=== PATIENT | male | born 1950 | race Caucasian/White ===

== ENCOUNTER → 2017-02-04 | Outpatient (CLI) | payer MEDICARE ==
[2016-04-02 13:40] VITALS: BP 135/76
[~2017-02-04] MED LIST: OMEP20CA9 PO
--- NOTE | 2017-02-04 10:01 | RAD ---
Examination: CT chest without contrast History: History of right upper lung infiltrate. Comparison: 04/02/2016 Technique: Axial CT images of chest were performed without contrast. Coronal and sagittal reformats were performed PQRS Compliance Statement: One or more of the following individualized dose reduction techniques were utilized for this examination: 1. Automated exposure control 2. Adjustment of the mA and/or kV according to patient size 3. Use of iterative reconstruction technique Findings: The visualized thyroid gland grossly appears unremarkable. The central airways are patent. The ascending aorta measures 4.4 cm in transverse dimension. Coronary artery calcifications identified. No evidence of pericardial effusion. Calcified mediastinal ,hilar lymph nodes are again identified. No radiologically significant mediastinal lymphadenopathy identified. The previously visualized left upper lobe pleural thickening has completely resolved. The apical scarring changes in the right lung is grossly similar to prior exam. There is minimal groundglass airspace opacity identified in the right upper lobe interstitium which appears new compared to prior exam. Emphysematous changes identified in the bilateral lungs. Calcified pleural plaque again identified in the left basal pleura. No evidence of pleural effusion or pneumothorax. The visualized noncontrasted liver, spleen, adrenals grossly appears unremarkable. The gallbladder is mildly distended. Moderate degenerative changes identified in the visualized thoracic spine. Nonspecific right axillary lymph nodes similar to prior exam. Impression: 1. Complete resolution of the left upper lobe focal pleural thickening. 2. Faint new groundglass interstitial opacity identified in the right upper lobe of the lung. Nonspecific , follow-up examination in 6 months is recommended to document stability or resolution. 3. Emphysematous changes identified in the lungs. 4. Mild aneurysmal change of the ascending thoracic aorta now measuring 4.4 cm in transverse dimension. 5. Coronary artery calcifications.
== END | disposition home or self-care (01) ==
LOC: CT 09:23
PROVIDERS: ATTEND Internal Medicine Pulmonary Disease
DX: I25.10 Atherosclerotic heart disease of native coronary artery without angina pectoris (principal); J43.8 Other emphysema; I72.9 Aneurysm of unspecified site; R91.8 Other nonspecific abnormal finding of lung field
CPT/HCPCS: 71250

== ENCOUNTER → 2020-02-03 | Outpatient (CLI) | payer MEDICARE ==
[2016-04-02 13:40] VITALS: BP 135/76
[~2020-02-03] MED LIST changes: +OMEP20CA16 PO; -OMEP20CA9 PO
--- NOTE | 2020-02-03 14:42 | RAD ---
Examination: CT chest without contrast HISTORY: COPD COMPARISON: 02/04/2017 Technique: Axial CT images of the chest were performed without contrast. Coronal and sagittal reformats are performed. Exposure: One or more of the following individualized dose reduction techniques were utilized for this examination: 1. Automated exposure control 2. Adjustment of the mA and/or kV according to patient size 3. Use of iterative reconstruction technique FINDINGS: The visualized thyroid gland grossly appears unremarkable central airways are patent. The ascending aorta is dilated measuring 4.6 cm in transverse dimension. No evidence for significant mediastinal lymphadenopathy. Severe bilateral lung emphysematous changes. There is a 1.5 cm spiculated nodule identified in the right lower lobe of the lung. Calcified pleural plaque left lung base. The visualized noncontrasted liver, adrenals grossly appears unremarkable. There is a subcentimeter right axillary lymph node identified similar to prior exam. Moderate degenerative changes thoracic spine. IMPRESSION: 1. A 1.5 cm spiculated nodule right lower lobe of the lung,, suspicious for neoplasm. Recommend PET/CT scan for further evaluation. 2. Severe bilateral lung emphysematous changes. 3. Aneurysmal change ascending aorta. Electronically signed by: Juan Jose España MD (02/03/2020 2:39 PM) [id number]
== END | disposition home or self-care (01) ==
LOC: CT 11:55
PROVIDERS: ATTEND Internal Medicine Pulmonary Disease
DX: J43.9 Emphysema, unspecified (principal); J94.8 Other specified pleural conditions; M47.814 Spondylosis without myelopathy or radiculopathy, thoracic region; I71.4 Abdominal aortic aneurysm, without rupture
CPT/HCPCS: 71250

== ENCOUNTER 2020-02-20 06:52 | Outpatient (CLI) | payer MEDICARE ==
[~2020-02-20] VITALS: Ht 171.4 cm; Wt 79.4 kg
[2020-02-20] VITALS (12 sets, daily range): BP systolic 138–178; BP diastolic 80–100
[~2020-02-20 06:52] MED LIST changes: -ALBU2.5V14 NEB; -ALBU2.5V8 IH; -ASCO500C9 PO; -ASPI-630 PO; -BUDE10.2 IH; -CALC-498 PO; -CRESTOR40 MG PO; -CYCL10TA2 PO; -FISH12002 PO; -FLUT9.9S NS; -GABA600T7 PO; -IPRA0.2S5 IH; -METO-239 PO; -MULT-658 PO; -OMEG-117 PO; -OXYC1TAB15 PO; -VITA0.4T4 PO
[2020-02-20] MEDS ORDERED: OMEG-117 PO (07:35)
[2020-02-20] MEDS ORDERED: FISH12002 PO (07:35)
[2020-02-20] MEDS ORDERED: ASPI-630 PO (07:35)
[2020-02-20] MEDS ORDERED: ALBU2.5V14 NEB (07:35)
[2020-02-20] MEDS ORDERED: CRESTOR40 MG PO (07:35)
[2020-02-20] MEDS ORDERED: ASCO500C9 PO (07:35)
[2020-02-20] MEDS ORDERED: FLUT9.9S NS (07:35)
[2020-02-20] MEDS ORDERED: OXYC1TAB15 PO (07:35)
[2020-02-20] MEDS ORDERED: CALC-498 PO (07:35)
[2020-02-20] MEDS ORDERED: IPRA0.2S5 IH (07:35)
[2020-02-20] MEDS ORDERED: ALBU2.5V8 IH (07:35)
[2020-02-20] MEDS ORDERED: CYCL10TA2 PO (07:35)
[2020-02-20] MEDS ORDERED: BUDE10.2 IH (07:35)
[2020-02-20] MEDS ORDERED: VITA0.4T4 PO (07:35)
[2020-02-20] MEDS ORDERED: GABA600T7 PO (07:35)
[2020-02-20] MEDS ORDERED: MULT-658 PO (07:35)
[2020-02-20] MEDS ORDERED: METO-239 PO (07:35)
[2020-02-20 07:42] LABS: BASO % 1 % (0-3); EOS # 0.1 x10^3/uL (0.0-0.7); EOS % 2 % (0-3); HEMATOCRIT 42.5 % (39.0-53.0); HEMOGLOBIN 14.6 g/dL (13.0-17.5); LYMPH # 1.1 x10^3/uL (1.0-4.8); LYMPH % 14 % (24-48); MEAN CORPUSCULAR HEMOGLOBIN 32 pg (25-35); MEAN CORPUSCULAR HGB CONC 34 g/dL (31-37); MEAN CORPUSCULAR VOLUME 94 fL (79-100); MONO # 0.6 x10^3/uL (0.0-1.1); MONO % 8 % (0-9); NEUT # 5.9 x10^3/uL (1.8-7.7); NEUT % 76 % (31-73); PLATELET COUNT 180 x10^3/uL (140-400); RED BLOOD COUNT 4.51 x10^6/uL (4.30-5.70); RED CELL DISTRIBUTION WIDTH 12.4 % (11.5-14.5); WHITE BLOOD COUNT 7.8 x10^3/uL (4.0-11.0)
[2020-02-20] MEDS ORDERED: LIDOCAINE WITH 8.4% SOD BICARB 3 ML DISP.SYRIN. ONE (08:18)
[2020-02-20] MEDS ORDERED: MIDAZOLAM HCL/PF 5 MG/5 ML VIAL. ONE (08:37)
[2020-02-20] MEDS ORDERED: fentaNYL PF VIAL 250 MCG/5 ML VIAL ONE (08:37)
[2020-02-20] MEDS ORDERED: LIDOCAINE WITH 8.4% SOD BICARB 3 ML DISP.SYRIN. IJ ONE (09:00)
[2020-02-20] MEDS ORDERED: fentaNYL PF VIAL 250 MCG/5 ML VIAL IV ONE (09:00)
[2020-02-20] MEDS ORDERED: MIDAZOLAM HCL/PF 5 MG/5 ML VIAL. IV ONE (09:00)
--- NOTE | 2020-02-20 09:14 | NUR ---
Patient came in outpatient to have lung biopsy. During procedure patient became restless and would not answer questions or follow commands. Vitals stable, no respiratory distress. Per Dr Macias procedure stopped, no biopsy obtained. Patient will need to reschedule with anesthesia with no sedation. Patient taken to OBS for recovery. After patient transferred to bed, patient began talking, asking questions, following commands but physically tensing up.
--- NOTE | 2020-02-20 10:44 | NUR ---
Discharge Note: JO ANN MENDES Discharge instructions and discharge home medications reviewed with Patient and a copy given. All questions have been answered and understanding verbalized. The following instructions and handouts were given: adult moderate sedation, lung biopsy Discontinued lines and drains: Peripheral IV intact. Patient discharged to Home or Self Care withSpousevia Wheelchair
--- NOTE | 2020-02-28 08:28 | RAD ---
Attempted biopsy, right lower lobe lung nodule Discussion: Attempted biopsy of the right lower lobe lung nodules performed. The procedure was explained in its entirety to the patient or the patients designated business services sales representative by a member of the treatment team, including a discussion of the risks, benefits and commonly accepted alternatives to the procedure, as well as the expected consequences of no therapy whatsoever. Discussion of the risks included, but was not limited to, those that are most frequent and those that are rare but possibly severe or life-threatening, as well as the possibility of unforeseen complications. All elements of maximal sterile barrier technique including the use of a cap, mask, sterile gown, sterile gloves, large sterile sheet, appropriate hand hygiene, and 2% chlorhexidine for cutaneous antisepsis (or acceptable alternative antiseptic per current guidelines) were followed for this procedure. A timeout procedure was performed The patient was placed in the prone position. Conscious sedation was administered. 1% lidocaine was administered for local anesthesia. CT imaging demonstrated a nodule in the posterior right lower lobe. 1% lidocaine was administered. Guiding needles advanced into the subcutaneous tissues. However this point the patient became agitated, and would not respond appropriately to verbal commands. This is felt to be in reaction to the sedation administered. The procedure was therefore terminated. Patient remained hemodynamically completely stable. Over the next several minutes the patient returned to baseline. No immediate complications were identified. The procedure will be rescheduled with anesthesia.
== END 2020-02-20 10:50 | disposition home or self-care (01) ==
LOC: INTRAD 06:52
PROVIDERS: ATTEND Internal Medicine Pulmonary Disease
DX: Z53.8 Procedure and treatment not carried out for other reasons (principal); R91.1 Solitary pulmonary nodule; Z87.39 Personal history of other diseases of the musculoskeletal system and connective tissue; Z79.899 Other long term (current) drug therapy; Z79.01 Long term (current) use of anticoagulants
CPT/HCPCS: 32405; 36415; 77012; 85025; 85610; 85730; 99152; J2250; J3010; J3490

== ENCOUNTER → 2020-02-20 | Outpatient (CLI) | payer MEDICARE ==
[~2020-02-20] MED LIST changes: +ALBU2.5V14 NEB; +ALBU2.5V8 IH; +ASCO500C9 PO; +ASPI-630 PO; +BUDE10.2 IH; +CALC-498 PO; +CRESTOR40 MG PO; +CYCL10TA2 PO; +FISH12002 PO; +FLUT9.9S NS; +GABA600T7 PO; +IPRA0.2S5 IH; +METO-239 PO; +MULT-658 PO; +OMEG-117 PO; +OXYC1TAB15 PO; +VITA0.4T4 PO
[2020-02-20 10:30] VITALS: BP 153/90
== END ==
LOC: LAB 11:00
PROVIDERS: ATTEND Surgery
DX: Z01.812 Encounter for preprocedural laboratory examination (principal); R91.8 Other nonspecific abnormal finding of lung field; Z20.828 Contact with and (suspected) exposure to other viral communicable diseases
CPT/HCPCS: U0003-CS

== ENCOUNTER → 2020-02-22 | Outpatient (CLI) | payer MEDICARE ==
[~2020-02-22] VITALS: Ht 171.4 cm; Wt 79.4 kg
[~2020-02-22] MED LIST changes: +ALBU2.5V14 NEB; +ALBU2.5V8 IH; +ASCO500C9 PO; +ASPI-630 PO; +BUDE10.2 IH; +CALC-498 PO; +CRESTOR40 MG PO; +CYCL10TA2 PO; +FISH12002 PO; +FLUT9.9S NS; +GABA600T7 PO; +GLYCOPYRROLATE 1 MG/5 ML VIAL. ONE; +IPRA0.2S5 IH; +IV RINGERS SOLUTION,LACTATED 1,000 ML BAG. ONE; +KETAMINE HCL IN NACL, ISO-OSM 50 MG/5 ML SYRINGE ONE; +LIDOCAINE WITH 8.4% SOD BICARB 3 ML DISP.SYRIN. IJ ONE; +LIDOCAINE WITH 8.4% SOD BICARB 3 ML DISP.SYRIN. ONE; +METO-239 PO; +MULT-658 PO; +OMEG-117 PO; +OXYC1TAB15 PO; +PROPOFOL 10 MG/ML (20ML) VIAL. IV ONE; +PROPOFOL 50 ML IV ONE; +VITA0.4T4 PO; +fentaNYL PF VIAL 100 MCG/2 ML VIAL ONE
[2020-02-22 10:43] VITALS: BP 123/75
[2020-02-22 12:15] VITALS: BP 132/80
[2020-02-22 15:00] VITALS: BP 120/76
--- NOTE | 2020-02-24 16:04 | RAD ---
CT-guided biopsy, right lower lobe pulmonary nodule 02/23/2020 Indication: Right lower lobe nodule Discussion: The risks and benefits of the procedure, including but not limited to, bleeding and infection were discussed patient. Informed consent was obtained. The patient was brought to the CT scanner and placed in the prone position. A timeout procedure was performed. CT imaging was performed demonstrating a spiculated nodule right lower lobe. Right posterior chest was prepped and draped using sterile barrier technique. 1% lidocaine was administered for local anesthesia. Under intermittent CT guidance 17-gauge needles advanced into the aforementioned nodule. Core biopsy samples were obtained. Minimal pneumothorax and perilesional hemorrhage was seen following biopsy. Patient tolerated the procedure well. Patient was transferred to the recovery area in stable condition. Sedation was provided by the anesthesiology department Impression: CT-guided biopsy right lower lobe nodule PQRS Compliance Statement: One or more of the following individualized dose reduction techniques were utilized for this examination: 1. Automated exposure control 2. Adjustment of the mA and/or kV according to patient size 3. Use of iterative reconstruction technique
--- NOTE | 2020-02-24 17:07 | PATHOLOGY ---
[facility] Accession Number: [id number] . 01 Material submitted: . lung - RIGHT LUNG BIOPSY. Modifiers: right . 01 Clinical history: . RIGHT UPPER LOBE MASS . 02 Diagnosis: Lung "right upper lobe mass", needle biopsy: - SQUAMOUS CELL CARCINOMA, MODERATELY DIFFERENTIATED. (GIANFRANCO:janet; 02/24/2020) . . MBR 02/24/2020 1627 Local . 02 Comment: The case was seen in co-review with Dr. Claudia Smart. (GIANFRANCO:janet; 02/24/2020) . 02 Electronically signed: . Lisa Mace MD, Pathologist NPI- [id number] . 01 Gross description: . The specimen is received in formalin, labeled "Ousmane Dodge, right lung biopsy". Received are two needle cores of pale quick soft tissue ranging in length from 0.4 to 0.6 cm in length by 0.1 cm in diameter. The specimen is submitted entirely in cassette A1 and A2. ([facility]; 02/22/2020) QA/QA 02/22/2020 1755 Local . 02 Microscopic: . Immunohistochemical stain results (properly controlled): CK5/6 (block A1) - tumor cells positive. P63 (block A1) - tumor cells positive for nuclear staining. TTF-1 (block A1) - highlights pneumocytes, tumor cells negative. Napsin A (block A1) - highlights pneumocytes, tumor cells negative. (GIANFRANCO:janet; 02/24/2020) . 02 Pathologist provided ICD-10: C34.11 . 02 CPT . 878812, [id number], [id number] Specimen Comment: A courtesy copy of this report has been sent to [phone], [phone] Specimen Comment: [id number], Specimen Comment: Report sent to ,DR LEON / DR LEVIN Performed at: [address], [place] [id number] MD Harinder Glover MD Phone: [phone] Performed at: [facility] [address] [facility], [place] [id number] MD David Basurto MD Phone: [phone]
--- NOTE | 2020-03-30 15:15 | KCIC ---
AP portable chest radiograph 02/22/2020 Clinical History: Post lung biopsy earlier today. An AP erect portable digital radiograph of the chest was obtained. Comparison is made to patient's CT scan of the chest dated 02/03/2020. The cardiac silhouette is normal in size. The thoracic aorta is tortuous. Scattered calcification thoracic aorta is seen. Emphysematous changes are seen involving both lungs. No acute pulmonary infiltrate is seen. No pleural effusion or pneumothorax is noted. The osseous structures are unchanged. IMPRESSION: No pneumothorax is seen. Electronically signed by: Pedro Busby MD (02/22/2020 5:50 PM) [id number] [id number]
== END ==
LOC: INTRAD 09:57
PROVIDERS: ATTEND Internal Medicine Pulmonary Disease
DX: C34.11 Malignant neoplasm of upper lobe, right bronchus or lung (principal); J93.83 Other pneumothorax; J43.9 Emphysema, unspecified; Z87.891 Personal history of nicotine dependence; Z79.82 Long term (current) use of aspirin; Z79.899 Other long term (current) drug therapy
CPT/HCPCS: 32405; 71045; 77012; J2704; J3010; J3490; J7120

== ENCOUNTER 2020-02-23 15:53 | Emergency (ER) | payer MEDICARE ==
[~2020-02-23] VITALS: Ht 171.4 cm; Wt 79.5 kg
[~2020-02-23 15:53] MED LIST changes: -GLYCOPYRROLATE 1 MG/5 ML VIAL. ONE; -IV RINGERS SOLUTION,LACTATED 1,000 ML BAG. ONE; -KETAMINE HCL IN NACL, ISO-OSM 50 MG/5 ML SYRINGE ONE; -LIDOCAINE WITH 8.4% SOD BICARB 3 ML DISP.SYRIN. IJ ONE; -LIDOCAINE WITH 8.4% SOD BICARB 3 ML DISP.SYRIN. ONE; -PROPOFOL 10 MG/ML (20ML) VIAL. IV ONE; -PROPOFOL 50 ML IV ONE; -fentaNYL PF VIAL 100 MCG/2 ML VIAL ONE
--- NOTE | 2020-02-23 17:35 | PHYS DOC ---
Past Medical History Past Medical History: Asthma, Bronchitis, COPD (MIKE LAMBERT DO) Past Surgical History: Other Additional Past Surgical Histo: LT hand tendon repair, prostate surg, vocal cord biopsy, laminoscopy x2 (MIKE LAMBERT DO) Smoking Status: Former Smoker Alcohol Use: None (MIKE LAMBERT DO) General Adult EDM: Chief Complaint: coughing up blood HPI: HPI: Patient is a 69 year old male who presented to ER with coughing up blood and trouble breathing since last night.. Patient is a former smoker, he was found to have a right upper lobe mass, had lung biopsy done yesterday. Patient said he is on 2 L of oxygen at home. He was coughing up blood last night and then again today so he came here for evaluation. Patient denies any fever, no chest pain. (MIKE LAMBERT DO) Review of Systems: Review of Systems: Constitutional: Denies fever or chills. [] Eyes: Denies change in visual acuity. [] HENT: Denies nasal congestion or sore throat. [] Respiratory: Positive for cough and shortness of breath. [] Cardiovascular: Denies chest pain or edema. [] GI: Denies abdominal pain, nausea, vomiting, bloody stools or diarrhea. [] : Denies dysuria. [] Musculoskeletal: Denies back pain or joint pain. [] Integument: Denies rash. [] Neurologic: Denies headache, focal weakness or sensory changes. [] Endocrine: Denies polyuria or polydipsia. [] Lymphatic: Denies swollen glands. [] Psychiatric: Denies depression or anxiety. [] (MIKE LAMBERT DO) Heart Score: Risk Factors: Risk Factors: DM, Current or recent (<one month) smoker, HTN, HLP, family history of CAD, obesity. Risk Scores: Score 0 - 3: 2.5% MACE over next 6 weeks - Discharge Home Score 4 - 6: 20.3% MACE over next 6 weeks - Admit for Clinical Observation Score 7 - 10: 72.7% MACE over next 6 weeks - Early Invasive Strategies (MIKE LAMBERT DO) Current Medications: Current Medications Iohexol (Omnipaque 300 Mg/ml) 75 ml 1X ONCE IV Last administered on 02/23/20at 18:30; Start 10/15/20 at 18:30; Stop 02/23/20 at 18:31; Status DC Info (CONTRAST GIVEN -- Rx MONITORING) 1 each PRN DAILY PRN MC SEE COMMENTS; Start 02/23/20 at 18:30; Stop 02/25/20 at 18:29 Active Scripts Active Reported Vitamin C (Ascorbic Acid) 500 Mg Capsule 1,000 Mg PO DAILY [place] 3-6-9 1,200 mg Softgel (Fish Oil/Borage/Flax/Om3,6,9#1) 1,200 Mg Capsule 1 Cap PO BID 30 Days B-Complex Tablet (Vitamin B Complex/Folic Acid) 0.4 Mg Tablet 1 Tab PO DAILY 30 Days Calcium 600 + Vit D3 800 Tab (Calcium Carbonate/Vitamin D3) 1 Each Tablet 1 Tab PO DAILY 30 Days Centrum Silver Tablet (Multivits-Min/Fa/Lycopene/Lut) 1 Each Tablet 1 Each PO DAILY Symbicort 160-4.5 Mcg Inhaler (Budesonide/Formoterol Fumarate) 10.2 Gm Hfa.aer.ad 2 Puff IH BID Proair Hfa Inhaler (Albuterol Sulfate) 8.5 Gm Hfa.aer.ad 2 Puff IH PRN Q4-6HRS PRN 21 Days Flonase Allergy Relief (Fluticasone Propionate) 9.9 Ml [place].susp 2 Sprays NS DAILY Albuterol Sulfate Conc Neb Soln (Albuterol Sulfate) 2.5 Mg/0.5 Ml Vial.neb 1 Vial NEB Q6HRS Ipratropium [place] 0.2 Mg/1 Ml Solution 0.2 Mg IH PRN PRN Crestor (Rosuvastatin Calcium) 40 Mg Tablet 20 Mg PO HS Aspirin 81 Mg Tab.chew 1 Tab PO DAILY Percocet 5-325 Mg Tablet (Oxycodone/Acetaminophen) 1 Each Tablet 1 Tab PO PRN Q6HRS PRN Cyclobenzaprine Hcl 10 Mg Tablet 1 Tab PO TID Gabapentin 600 Mg Tablet 600 Mg PO TID Metoprolol Succinate ( Xl ) (Metoprolol Succinate) 25 Mg Tab.er.24h 1 Tab PO DAILY Omeprazole 20 Mg Capsule. 1 Cap PO BID (ZION GONZALEZ MD) Allergies: Allergies: Allergies Coded Allergies Type Severity Reaction Last Updated Verified No Known Drug Allergies 04/02/16 No (MIKE LAMBERT DO) Physical Exam: PE: Constitutional: Well developed, well nourished, no acute distress, non-toxic appearance. [] HENT: Normocephalic, atraumatic, bilateral external ears normal, oropharynx moist, no oral exudates, nose normal. [] Eyes: PERRLA, EOMI, conjunctiva normal, no discharge. [] Neck: Normal range of motion, no tenderness, supple, no stridor. [] Cardiovascular:Heart rate regular rhythm, no murmur [] Lungs & Thorax: Bilateral breath sounds with expiratory wheezing to auscultation, No respiratory distress. Abdomen: Bowel sounds normal, soft, no tenderness, no masses, no pulsatile masses. [] Skin: Warm, dry, no erythema, no rash. [] Back: No tenderness, no CVA tenderness. [] Extremities: No tenderness, no cyanosis, no clubbing, ROM intact, no edema. [] Neurologic: Alert and oriented X 3, normal motor function, normal sensory function, no focal deficits noted. [] Psychologic: Affect normal, judgement normal, mood normal. [] (MIKE LAMBERT DO) Current Patient Data: Vital Signs: Vital Signs Date Time Temp Pulse Resp B/P (MAP) Pulse Ox O2 Delivery O2 Flow Rate FiO2 02/23/20 16:30 98.1 84 22 117/66 (83) 98 Nasal Cannula 2.0 98.1 (MIKE LAMBERT DO) Labs: Laboratory Tests Test 02/23/20 17:45 White Blood Count 6.9 x10^3/uL Red Blood Count 4.38 x10^6/uL Hemoglobin 14.3 g/dL Hematocrit 40.9 % Mean Corpuscular Volume 93 fL Mean Corpuscular Hemoglobin 33 pg Mean Corpuscular Hemoglobin Concent 35 g/dL Red Cell Distribution Width 12.6 % Platelet Count 182 x10^3/uL Neutrophils (%) (Auto) 69 % Lymphocytes (%) (Auto) 19 % Monocytes (%) (Auto) 10 % Eosinophils (%) (Auto) 2 % Basophils (%) (Auto) 0 % Neutrophils # (Auto) 4.8 x10^3/uL Lymphocytes # (Auto) 1.3 x10^3/uL Monocytes # (Auto) 0.7 x10^3/uL Eosinophils # (Auto) 0.1 x10^3/uL Basophils # (Auto) 0.0 x10^3/uL Prothrombin Time 13.4 SEC Prothromb Time International Ratio 1.1 Activated Partial Thromboplast Time 26 SEC Sodium Level 142 mmol/L Potassium Level 3.7 mmol/L Chloride Level 105 mmol/L Carbon Dioxide Level 29 mmol/L Anion Gap 8 Blood Urea Nitrogen 22 mg/dL Creatinine 1.0 mg/dL Estimated GFR (Cockcroft-Gault) 73.9 BUN/Creatinine Ratio 22 Glucose Level 105 mg/dL Calcium Level 9.0 mg/dL Magnesium Level 2.2 mg/dL Total Bilirubin 0.5 mg/dL Aspartate Amino Transf (AST/SGOT) 14 U/L Alanine Aminotransferase (ALT/SGPT) 28 U/L Alkaline Phosphatase 74 U/L Total Protein 5.9 g/dL Albumin 3.5 g/dL Albumin/Globulin Ratio 1.5 Current Medications Medications (Trade) Dose Ordered Sig/Ina Route PRN Reason Start Time Stop Time Status Last Admin Dose Admin Iohexol (Omnipaque 300 Mg/ml) 75 ml 1X ONCE IV 02/23/20 18:30 02/23/20 18:31 DC 02/23/20 18:30 Info (CONTRAST GIVEN -- Rx MONITORING) 1 each PRN DAILY PRN MC SEE COMMENTS 02/23/20 18:30 02/25/20 18:29 Vital Signs: Vital Signs Date Time Temp Pulse Resp B/P (MAP) Pulse Ox O2 Delivery O2 Flow Rate FiO2 02/23/20 18:00 80 16 122/62 (82) 100 Nasal Cannula 2.0 02/23/20 17:30 82 20 115/67 (83) 99 Nasal Cannula 2.0 02/23/20 17:00 82 18 105/56 (72) 99 Nasal Cannula 2.0 02/23/20 16:30 98.1 84 22 117/66 (83) 98 Nasal Cannula 2.0 98.1 02/23/20 16:30 88 19 117/66 (83) 96 Nasal Cannula 2.0 (ZION GONZALEZ MD) EKG: EKG: [] (MIKE LAMBERT DO) Radiology/Procedures: Radiology/Procedures: [][facility] [address] [place], [place] [id number] IMAGING REPORT Signed PATIENT: JO ANN MENDES RACCOUNT: [id number] : 1950 LOCATION: ER AGE: 69 SEX: M EXAM STATUS: REG ER ORD. PHYSICIAN: MIKE LAMBERT DO REASON: SOA, COUGHING UP BLOOD, HAD LUNG BIOPSY YESTERDAY PROCEDURE: CHEST AP ONLY CHEST AP ONLY History: Reason: SOA, COUGHING UP BLOOD, HAD LUNG BIOPSY YESTERDAY / Spl. Instructions: / History: Comparison: February 22, 2020 Findings: Tiny right apical pneumothorax, unchanged compared to postbiopsy CT. Patchy right basilar opacity. No pleural effusion. Normal heart size. Bilateral glenohumeral DJD. Impression: 1. Tiny right apical pneumothorax, unchanged compared to postbiopsy CT. 2. Patchy right basilar opacity, likely related to postbiopsy hemorrhage. Electronically signed by: Reno Kilgore DO (02/23/2020 5:30 PM) [facility] DICTATED and SIGNED BY: RENO KILGORE DO DATE: 02/23/201729 (MIKE LAMBERT DO) Radiology/Procedures: [facility] [address] [place] [address] IMAGING REPORT Signed PATIENT: JO ANN MENDESUNT: [id number] : 1950 LOCATION: ER AGE: 69 SEX: M EXAM STATUS: REG ER ORD. PHYSICIAN: MIKE LAMBERT DO REASON: cough up blood, soa, had lung biopsy done yesterday PROCEDURE: CT CHEST W/CONTRAST CT CHEST W/CONTRAST History: Hemoptysis. Shortness of breath. Recent lung biopsy. Technique: CT of the chest was performed with intravenous contrast. Coronal and sagittal reconstructions were performed. Exposure: One or more of the following individualized dose reduction techniques were utilized for this examination: 1. Automated exposure control 2. Adjustment of the mA and/or kV according to patient size 3. Use of iterative reconstruction technique. Comparison: CT lung biopsy February 22, 2020. CT February 03, 2020 Findings: Chest: Tiny right anterior pneumothorax, decreased compared to postbiopsy CT. Right lower lobe spiculated nodule measures 1.3 x 1.3 cm. There is adjacent groundglass opacities, likely postbiopsy hemorrhage and decreased compared to postbiopsy CT. Severe pulmonary emphysema. Calcified right hilar lymph nodes and calcified pulmonary nodules, likely prior granulomatous disease. No pathologic lymphadenopathy. No pleural effusion. Unchanged dilatation of the ascending aorta measures 4.3 cm. Right inferior thyroid nodule measures 1.2 x 1.3 cm, unchanged. Upper abdomen: Right mid renal cyst partially imaged, unchanged. Bones: Multilevel thoracic spondylosis. Lower cervical spondylosis with grade 1 anterolisthesis C7 on T1. Impression: 1. Tiny right pneumothorax, decreased compared to post biopsy CT. 2. Spiculated right lower lobe pulmonary nodule with adjacent ground glass opacities, decreased compared to postbiopsy CT. Findings likely related to decreasing postbiopsy hemorrhage. Recommend follow-up of biopsy results. 3. Severe pulmonary emphysema. 4. Right inferior thyroid nodule, unchanged. Electronically signed by: Reno Kilgore DO (02/23/2020 7:05 PM) [facility] DICTATED and SIGNED BY: RENO KILGORE DO DATE: 02/23/201904 (ZION GONZALEZ MD) Course & Med Decision Making: Course & Med Decision Making Pertinent Labs and Imaging studies reviewed. (See chart for details) Patient is a 69-year-old male who had a lung biopsy done yesterday, presented with hemoptysis, had tiny apical pneumothorax, will obtain CT scan of head chest to evaluate for vascular injury and pneumothorax, checked out to Dr. Gonzalez at shift change. (MIKE LAMBERT DO) Course & Med Decision Making 69-year-old male who had a lung biopsy yesterday and presents with hemoptysis. Patient was initially seen by Dr. Yoon and signed out to me. On my reassessment patient is alert and oriented no respiratory distress and has not had any hemoptysis in the last hour plus. CT is stable/improved from yesterday. Labs were unremarkable. Patient satting 100% on room air and in no respiratory distress. (ZION GONZALEZ MD) Dragon Disclaimer: Dragon Disclaimer: This electronic medical record was generated, in whole or in part, using a voice recognition dictation system. (MIKE LAMBERT DO) Departure Departure Impression: Primary Impression: Cough with hemoptysis Disposition: 01 DC HOME SELF CARE/HOMELESS Condition: STABLE Referrals: JELENA LEVIN (PCP) KORIN LEON MD 2-3 days Patient Instructions: Hemoptysis Additional Instructions: EMERGENCY DEPARTMENT GENERAL DISCHARGE INSTRUCTIONS THANK YOU for coming to [facility] Emergency Department (ED) today and trusting us with your care. We trust that you had a positive experience in our Emergency Department. If you wish to speak to the department Management you can contact the electronics department manager at . YOUR FOLLOW UP INSTRUCTIONS ARE FOLLOWS: Do you have a private doctor? If you do not have a private doctor, please ask for a resource list of physicians or clinics that may be able to assist you with follow up care. The Emergency Physician has interpreted your x-rays. The X-ray specialist will also review them. If there is a change in the findings you will be notified in 48 hours when at all possible. A lab test or lab culture may have been done, your results will be reviewed and you will be notified if you need a change in treatment. ADDITIONAL INSTRUCTIONS AND INFORMATION Your care today has been supervised by a physician who is specially trained in emergency care. Many problems require more than one evaluation for a complete diagnosis and treatment. We recommend that you schedule your follow up appointment as recommended to ensure complete treatment of your illness or injury. If you are unable to obtain follow up care and continue to have a problem, or if your condition worsens we recommend that you return to the ED. We are not able to safely determine your condition over the phone nor are we able to give sound medical advice over the phone. For these safety reasons, if you call for medical advice we will ask you to come to the ED for further evaluation If you have any questions regarding these discharge instructions please call the ED at . SAFETY INFORMATION In the interest of safety, wellness, and injury prevention; we encourage you to wear your seatbelt, if you smoke; quit smoking, and we encourage your family to use protective helmet for bicycling and other sporting events that present an increased risk for head injury. IF YOUR SYMPTOMS WORSEN OR NEW SYMPTOMS DEVELOP, OR YOU HAVE CONCERNS ABOUT YOUR CONDITION; OR IF YOUR CONDITION WORSENS WHILE YOU ARE WAITING FOR YOUR FOLLOW UP APPOINTMENT; EITHER CONTACT YOUR PRIMARY CARE DOCTOR, THE PHYSICIAN WHOSE NAME AND NUMBER YOU WERE GIVEN, OR RETURN TO THE ED IMMEDIATELY. MIKE LAMBERT DO Feb 23, 2020 17:35 ZION GONZALEZ MD Feb 23, 2020 19:18
[2020-02-23 17:52] LABS: BASO % 0 % (0-3); EOS # 0.1 x10^3/uL (0.0-0.7); EOS % 2 % (0-3); HEMATOCRIT 40.9 % (39.0-53.0); HEMOGLOBIN 14.3 g/dL (13.0-17.5); LYMPH # 1.3 x10^3/uL (1.0-4.8); LYMPH % 19 % (24-48); MEAN CORPUSCULAR HEMOGLOBIN 33 pg (25-35); MEAN CORPUSCULAR HGB CONC 35 g/dL (31-37); MEAN CORPUSCULAR VOLUME 93 fL (79-100); MONO # 0.7 x10^3/uL (0.0-1.1); MONO % 10 % (0-9); NEUT # 4.8 x10^3/uL (1.8-7.7); NEUT % 69 % (31-73); PLATELET COUNT 182 x10^3/uL (140-400); RED BLOOD COUNT 4.38 x10^6/uL (4.30-5.70); RED CELL DISTRIBUTION WIDTH 12.6 % (11.5-14.5); WHITE BLOOD COUNT 6.9 x10^3/uL (4.0-11.0)
[2020-02-23 17:59] LABS: GFR 73.9; POTASSIUM 3.7 mmol/L (3.5-5.1)
[2020-02-23 18:00] LABS: PROTHROMBIN TIME PATIENT 13.4 SEC (11.7-14.0)
[2020-02-23 18:05] LABS: ALBUMIN 3.5 g/dL (3.4-5.0); ALBUMIN/GLOBULIN RATIO 1.5 (1.0-1.7); MAGNESIUM 2.2 mg/dL (1.8-2.4); TOTAL BILIRUBIN 0.5 mg/dL (0.2-1.0); TOTAL PROTEIN 5.9 g/dL (6.4-8.2)
[2020-02-23] MEDS ORDERED: CONTRAST GIVEN. MC PRN (18:30)
[2020-02-23] MEDS ORDERED: IOHEXOL 300 MG/ML 100ML VIAL. IV ONE (18:30)
--- NOTE | 2020-02-23 19:07 | RAD ---
CT CHEST W/CONTRAST History: Hemoptysis. Shortness of breath. Recent lung biopsy. Technique: CT of the chest was performed with intravenous contrast. Coronal and sagittal reconstructions were performed. Exposure: One or more of the following individualized dose reduction techniques were utilized for this examination: 1. Automated exposure control 2. Adjustment of the mA and/or kV according to patient size 3. Use of iterative reconstruction technique. Comparison: CT lung biopsy February 22, 2020. CT February 03, 2020 Findings: Chest: Tiny right anterior pneumothorax, decreased compared to postbiopsy CT. Right lower lobe spiculated nodule measures 1.3 x 1.3 cm. There is adjacent groundglass opacities, likely postbiopsy hemorrhage and decreased compared to postbiopsy CT. Severe pulmonary emphysema. Calcified right hilar lymph nodes and calcified pulmonary nodules, likely prior granulomatous disease. No pathologic lymphadenopathy. No pleural effusion. Unchanged dilatation of the ascending aorta measures 4.3 cm. Right inferior thyroid nodule measures 1.2 x 1.3 cm, unchanged. Upper abdomen: Right mid renal cyst partially imaged, unchanged. Bones: Multilevel thoracic spondylosis. Lower cervical spondylosis with grade 1 anterolisthesis C7 on T1. Impression: 1. Tiny right pneumothorax, decreased compared to post biopsy CT. 2. Spiculated right lower lobe pulmonary nodule with adjacent ground glass opacities, decreased compared to postbiopsy CT. Findings likely related to decreasing postbiopsy hemorrhage. Recommend follow-up of biopsy results. 3. Severe pulmonary emphysema. 4. Right inferior thyroid nodule, unchanged. Electronically signed by: Reno Kilgore DO (02/23/2020 7:05 PM) [facility]
[2020-02-23 19:52] VITALS: BP 117/71
== END 2020-02-23 19:56 | disposition home or self-care (01) ==
LOC: ER 15:53
DX: R04.2 Hemoptysis (principal); J44.9 Chronic obstructive pulmonary disease, unspecified; Z87.891 Personal history of nicotine dependence
CPT/HCPCS: 36415; 71045; 71260; 80053; 83735; 85025; 85610; 85730; 88305; 88341; 88342; 99285; Q9967

== ENCOUNTER → 2020-03-02 | Outpatient (CLI) | payer MEDICARE ==
[2020-02-23 19:52] VITALS: BP 117/71
== END ==
LOC: LAB 12:43
PROVIDERS: ATTEND Internal Medicine Pulmonary Disease
DX: Z20.828 Contact with and (suspected) exposure to other viral communicable diseases (principal)
CPT/HCPCS: U0003-CS

== ENCOUNTER → 2020-03-05 | Day surgery (SDC) | payer MEDICARE ==
[~2020-03-05] MED LIST changes: +ALBUTEROL SULFATE 2.5 MG/3 ML NEBU. NEB PRN; +EPINEPHrine 1 MG/ML VIAL INJ PRN; +EPINEPHrine 1 MG/ML VIAL ONE; +HYDROmorphone 2 MG/ML VIAL IV PRN; +IV RINGERS,LACTATED 1000ML 1,000 ML IV SCH; +LIDOCAINE 1% Multi-Dose 20 ML VIAL. INJ PRN; +LIDOCAINE 1% Multi-Dose 20 ML VIAL. ONE; +LIDOCAINE 1% PF 2 ML VIAL. ID PRN; +LIDOCAINE 2% VISCOUS 100 ML BOTTLE. MM PRN; +LIDOCAINE 2% VISCOUS 100 ML BOTTLE. ONE; +LIDOCAINE 4% TOPICAL 50 ML SOLUTION. MM PRN; +LIDOCAINE 4% TOPICAL 50 ML SOLUTION. ONE; +MORPHINE SULFATE 2 MG/ML VIAL. IV PRN; +ONDANSETRON PF 4 MG/2 ML VIAL. IV PRN; +PROCHLORPERAZINE 10 MG/2 ML VIAL. IV PRN; +PROPOFOL 10 MG/ML (20ML) VIAL. IV ONE; +fentaNYL PF VIAL 100 MCG/2 ML VIAL IV PRN
[2020-03-05 13:09] VITALS: BP 113/58
--- NOTE | 2020-03-05 13:44 | OP ---
DATE OF SURGERY: 03/05/2020 ATTENDING PHYSICIAN: Korin Leon MD. PROCEDURE: Bronchoscopy, bronchoalveolar lavage of right lower lobe. INDICATIONS: The patient presented with hemoptysis, recent diagnosis of lung cancer status post fine needle aspiration, undergoing diagnostic bronchoscopy. Risks, benefits, and alternatives reviewed with the patient, he consented. DESCRIPTION OF PROCEDURE: A timeout was performed prior to sedation. Vital signs and O2 saturation were maintained within normal limits throughout the procedure. The bronchoscope was passed through the right naris. The vocal cords were identified moving bilaterally without any dysfunction. The vocal cords were then anesthetized with a total of 5 mL of 4% lidocaine. Bronchoscope was passed through the vocal cords into the proximal trachea, which was normal. The distal trachea was likewise normal. The right segments and subsegments were all visualized. There was no endobronchial lesion. There were no evidence of edema. FINDINGS: 1. Vocal cords with possible Purnima superinfection, acute vocal cords with some white patchy areas, suspect Candidiasis. 2. No endobronchial lesion. 3. Normal trachea. 4. No evidence of active bleeding. PLAN: 1. We will await BAL results. 2. Nystatin swish and swallow. 3. Follow up in the office. The patient tolerated procedure well with no immediate complications. KORIN LEON MD DR: TORRES/marilin JOB#: [id number] / [id number]
--- NOTE | 2020-03-06 12:09 | PATHOLOGY ---
Note [facility] Accession Number: [id number] TESTS RESULT FLAG UNITS REF RANGE LAB Clinician Provided Cytology Information No. of containers..01 Other (Miscellaneous) Source: R. BAL DIAGNOSIS: R. BAL NEGATIVE FOR MALIGNANT CELLS. NORMAL BRONCHIAL CELLS ARE PRESENT. PULMONARY MACROPHAGES (DUST CELLS) ARE PRESENT. Signed out by: 02 David Basurto MD, Pathologist NPI- [id number] Performed by: Alethea Camacho, Infantryman ([facility]) Gross description: 01 5 ML, CLDY PINK, 1 TP /LCS 03/06/2020 0713 Local FLAG LEGEND: L-Low Normal,H-High Normal,LL-Alert Low,HH-Alert High <-Panic Low,>-Panic High,A-Abnormal,AA-Critical Abnormal Performed at: [address] [place] [address] Ahmet Parks MD, 02 [facility] [address] [place] [address] David Basurto MD, Specimen Comment: A courtesy copy of this report has been sent to [phone], [phone] Specimen Comment: [id number] Specimen Comment: Report sent to DR LEON / DR LEVIN Specimen Comment: A duplicate report has been generated due to demographic updates. Performed at: [address] [place], [place] [id number] [facility] [address], [place], [place] [id number] MD Ahmet Parks MD Phone: [phone]
== END ==
LOC: SURG 10:44
PROVIDERS: ATTEND Internal Medicine Pulmonary Disease
DX: C34.91 Malignant neoplasm of unspecified part of right bronchus or lung (principal); R04.2 Hemoptysis; Z79.82 Long term (current) use of aspirin; Z79.899 Other long term (current) drug therapy; Z87.891 Personal history of nicotine dependence
CPT/HCPCS: 31624; 87070; 87077; 87186; 87205; 88112; 94640; J2704; J3490; J7613; 31622; J0171

== ENCOUNTER → 2020-04-20 | Outpatient (CLI) | payer MEDICARE ==
[2020-03-05 13:09] VITALS: BP 113/58
[~2020-04-20] MED LIST changes: -ALBUTEROL SULFATE 2.5 MG/3 ML NEBU. NEB PRN; -EPINEPHrine 1 MG/ML VIAL INJ PRN; -EPINEPHrine 1 MG/ML VIAL ONE; -HYDROmorphone 2 MG/ML VIAL IV PRN; -IV RINGERS,LACTATED 1000ML 1,000 ML IV SCH; -LIDOCAINE 1% Multi-Dose 20 ML VIAL. INJ PRN; -LIDOCAINE 1% Multi-Dose 20 ML VIAL. ONE; -LIDOCAINE 1% PF 2 ML VIAL. ID PRN; -LIDOCAINE 2% VISCOUS 100 ML BOTTLE. MM PRN; -LIDOCAINE 2% VISCOUS 100 ML BOTTLE. ONE; -LIDOCAINE 4% TOPICAL 50 ML SOLUTION. MM PRN; -LIDOCAINE 4% TOPICAL 50 ML SOLUTION. ONE; -MORPHINE SULFATE 2 MG/ML VIAL. IV PRN; -ONDANSETRON PF 4 MG/2 ML VIAL. IV PRN; -PROCHLORPERAZINE 10 MG/2 ML VIAL. IV PRN; -PROPOFOL 10 MG/ML (20ML) VIAL. IV ONE; -fentaNYL PF VIAL 100 MCG/2 ML VIAL IV PRN
--- NOTE | 2020-04-23 17:50 | RAD ---
EXAM: PET/CT EXAM DATE: 04/20/2020 INDICATION: Restaging squamous cell carcinoma of the right lung. RADIOPHARMACEUTICAL: 15.0 mCi of F-18 Fluorodeoxyglucose (FDG) I.V. via the left antecubital fossa. TECHNIQUE: Patient weight: 170 pounds. Following at least four-hour fasting, the patient's blood gluc ose was 87 mg/dl. Approximately 1 hour after administration of FDG, overlapping emission scanning wa s performed from the orbital meatal line through the pelvis. A low-dose CT was performed for attenua tion correction purposes and anatomic localization. Fused images of PET and CT were reviewed. Any st andardized uptake values (SUV) reported are maximum values within a volume region of interest, expres sed in gm/ml. COMPARISON: Chest CTs of 02/03/2020 and 02/23/2020 FINDINGS: PET: In the head and neck, no abnormal FDG uptake is convincingly demonstrated. In the chest, the posterior medial right lower lobe pulmonary nodule shows FDG uptake to max SUV of 1 .96. This compares with background FDG uptake in the mediastinum to max SUV of 2.35. Some respiratory motion artifact degrades detail but it measures approximately 1.5 x 0.9 cm. No additional abnormal F DG uptake is identified in the chest. In the abdomen and pelvis, no abnormal FDG uptake is appreciated. Background FDG uptake in the liver is 2.83 Max SUV. No abnormal uptake in the bones. CT: In the head and neck, no mass or adenopathy is appreciated. In the chest, a 1.6 cm nodule abutting the inferior pole of the right thyroid lobe (image 92 of serie s 3) is unchanged and would be better evaluated with ultrasound. Its activity is indistinguishable fr om the background activity of the adjacent vascular structures. Ectasia of the ascending thoracic aor ta to 4.4 cm is present. Normal heart size. Multivessel coronary calcifications. Calcified right marin r lymph nodes are redemonstrated. No mass or adenopathy is otherwise demonstrated in the mediastinum or marin. Lungs again show centrilobular upper lobe predominant emphysema. No additional suspicious pulmonary n odules or masses in the lungs. No pneumothorax or pleural effusion. There is an asymmetrically prominent right level 1 axillary lymph node 1 cm in diameter (image 108 of series 3) that also shows no abnormal FDG uptake. It is also unchanged. In the abdomen and pelvis, there is misting in the mesentery in the left upper quadrant abdomen. No a cute solid organ or bowel pathology is otherwise noted. A left hip arthroplasty creates streak artifact that limits detailed evaluation of the pelvis but the prostate appears small and there are calcifications in the penile base, similar to prior. No acute or aggressive appearing bony lesions are appreciated. Degenerative changes are present throu ghout the spine, including at L4-L5 where endplate sclerosis and marked disc space narrowing is prese nt asymmetric to the right. IMPRESSION: 1. The right lower lobe pulmonary nodule shows no activity above background and is overall similar in size, allowing for variation in measurement due to respiratory motion artifact. 2. No additional sites of abnormal FDG uptake suspicious for FDG avid malignancy is identified. Howev er, attention on follow-up to a right level 1 axillary lymph node and a 1.6 cm nodule at the inferior pole of the right thyroid lobe is suggested to ensure benign behavior. 3. Additional incidental findings including skeletal and vascular degenerative changes as described i n the body of the report. Electronically signed by: Apolonia Meza MD (04/23/2020 5:48 PM) [id number]
== END ==
LOC: PETSC 11:10
PROVIDERS: ATTEND Radiology Radiation Oncology
DX: C34.91 Malignant neoplasm of unspecified part of right bronchus or lung (principal); I25.10 Atherosclerotic heart disease of native coronary artery without angina pectoris; R91.1 Solitary pulmonary nodule; I77.810 Thoracic aortic ectasia; E04.1 Nontoxic single thyroid nodule
CPT/HCPCS: 78815; A9552

== ENCOUNTER → 2020-05-07 | Outpatient (CLI) | payer MEDICARE ==
[2020-03-05 13:09] VITALS: BP 113/58
--- NOTE | 2020-05-07 16:57 | RAD ---
EXAM: PA and Lateral Views of the Chest DATE: 05/07/2020 12:00 PM INDICATION: Reason: CARCINOMA RT LUNG / Spl. Instructions: / History: COMPARISON: 02/23/2020 02/22/2020 FINDINGS: The heart is not enlarged. Mediastinal and hilar contours are normal. The known right lung mass is better assessed on prior cross-sectional imaging. No lobar consolidation . No pleural effusion or pneumothorax. IMPRESSION: The known right lung mass is better assessed on prior cross-sectional imaging. No lobar consolidation . Electronically signed by: Nick Santiago MD (05/07/2020 4:55 PM) COURTNEY
== END ==
LOC: RAD 11:41
PROVIDERS: ATTEND Radiology Radiation Oncology
DX: C34.90 Malignant neoplasm of unspecified part of unspecified bronchus or lung (principal); R91.1 Solitary pulmonary nodule
CPT/HCPCS: 71046

== ENCOUNTER → 2020-09-21 | Outpatient (CLI) | payer MEDICARE ==
[2020-03-05 13:09] VITALS: BP 113/58
--- NOTE | 2020-09-21 13:24 | RAD ---
PET/CT imaging from the skull through the midthigh History: History of lung cancer. Follow-up study Comparison: April 20, 2020 Technique: PET examination was performed from the skull base to the proximal thighs after intravenous administration of 14.82 mCi Fluorine [address] scan was performed for the purposes of localization and attenuation, not for primary diagnosis. Blood glucose level at time of injection was 88 mg/dl. PQRS Compliance Statement: One or more of the following individualized dose reduction techniques were utilized for this examination: 1. Automated exposure control 2. Adjustment of the mA and/or kV according to patient size 3. Use of iterative reconstruction technique Findings: HEAD AND NECK: Physiologic activity is seen. No soft tissue mass or enlarged lymph node with abnormal hypermetabolic activity is seen. Again seen is a 1.4 cm nodule of the lower pole of the right lobe of the thyroid gland posteriorly. Max SUV here is 3.1. CHEST: No enlarged or hypermetabolic lymphadenopathy is seen. Previously seen posterior medial right lower lobe lung nodule has resolved but there is an increase in groundglass lung infiltrate within the posterior right lower lobe. This could represent atelectasis or pneumonitis. No new lung nodules or lung mass is seen. No enlargement of the right axillary lymph node which previously is seen. No enlargement of the inferior pole right thyroid nodule is seen. ABDOMEN AND PELVIS: No abnormal enlarged abdominal or pelvic lymphadenopathy is seen. No hepatic metastasis is seen. Physiologic activity is present within the small bowel and colon. There is physiologic activity within the tract with some misregistration artifact of the left side of the pelvis related to the urinary bladder. Otherwise no hypermetabolic lesion or soft tissue mass is evident. MUSCULOSKELETAL: No lytic process or hypermetabolic lesion is seen. IMPRESSION: Previously seen right lower lobe lung nodule has resolved. However, there is new mild groundglass lung infiltrate present within the right lower lobe which may represent atelectasis or pneumonitis. No hypermetabolic activity is seen here however. No metastatic disease or lymphadenopathy is evident. Stable right axillary lymph node measuring 1 cm in size. Stable in size lower pole right lobe thyroid nodule. It is mildly hypermetabolic. This may be further evaluated and followed sonographically.
== END ==
LOC: PETSC 08:28
PROVIDERS: ATTEND Radiology Radiation Oncology
DX: C34.31 Malignant neoplasm of lower lobe, right bronchus or lung (principal); R91.8 Other nonspecific abnormal finding of lung field; E04.1 Nontoxic single thyroid nodule
CPT/HCPCS: 78815; A9552

== ENCOUNTER 2021-03-21 10:59 | Inpatient (IN) | payer MEDICARE ==
[~2021-03-21] VITALS: Ht 170.2 cm; Wt 81.9 kg
[~2021-03-21 10:59] MED LIST changes: +CYCL10TA19 PO; -CYCL10TA2 PO
[2021-03-21 11:25] VITALS: BP 141/74
--- NOTE | 2021-03-21 11:39 | PDOC1 ---
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 3 weeks ago was exposed to respiratory syncytial virus by a great grandchild and has had progressively worsening dyspnea despite home respiratory treatments and steroids outpatient. Initially 3 weeks ago he had fevers as high as 103 F and was placed on antibiotics and steroids and improved over the next week and a half. However 10 days ago he started to worsen again with weakness dyspnea on exertion and worsening hypoxia requiring increased from his home O2 of 2 L/min to 4 L/min to maintain saturations 92%. He has had subjective fever and chills diarrhea at home. He has had no travel recently. He is up-to-date on COVID-19 vaccines he is over 2 weeks out from his third vaccine booster. He is also up-to-date on influenza and pneumonia vaccines as well. Seen bedside he has conversational dyspnea and cough is minimally productive. Chest radiograph performed during my examination does show what appears to be scarring in the right upper middle lobe and increased bronchial markings interstitial markings no confluent infiltrate that I can observe. Initial vital signs on my bedside exam temperature 97.1 F pulse 96 beats a minute respirations 24 bpm blood pressure 141/74, O2 saturations 95% on 4 L/min. 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 He also had heavy metal poisoning with cadmium in 2000 while working in [place]. He has had good outpatient follow-up for his ascending aortic aneurysm recently noted stable recent PET scan for his history of squamous cell lung cancer was negative. Past Medical History Cardiovascular: HTN, Other (ascending aortic aneurysm) Pulmonary: Asthma, Bronchitis, COPD Past Surgical History Past Surgical History: Total hip replacement (left hip replacement) Family History Family History: Hypertension Social History Smoke: Quit (1988) ALCOHOL: none Drugs: None Current Medications Current Medications Active Scripts Active Reported Vitamin C (Ascorbic Acid) 500 Mg Capsule 1,000 Mg PO DAILY [place] 3-6-9 1,200 mg Softgel (Fish Oil/Borage/Flax/Om3,6,9#1) 1,200 Mg Capsule 1 Cap PO BID 30 Days B-Complex Tablet (Vitamin B Complex/Folic Acid) 0.4 Mg Tablet 1 Tab PO DAILY 30 Days Calcium 600 + Vit D3 800 Tab (Calcium Carbonate/Vitamin D3) 1 Each Tablet 1 Tab PO DAILY 30 Days Centrum Silver Tablet (Multivits-Min/Fa/Lycopene/Lut) 1 Each Tablet 1 Each PO DAILY Symbicort 160-4.5 Mcg Inhaler (Budesonide/Formoterol Fumarate) 10.2 Gm Hfa.ae r.ad 2 Puff IH BID Proair Hfa Inhaler (Albuterol Sulfate) 8.5 Gm Hfa.aer.ad 2 Puff IH PRN Q4-6HRS PRN 21 Days Flonase Allergy Relief (Fluticasone Propionate) 9.9 Ml [place].susp 2 Sprays NS DAILY Albuterol Sulfate Conc Neb Soln (Albuterol Sulfate) 2.5 Mg/0.5 Ml Vial.neb 1 Vial NEB Q6HRS Ipratropium [place] 0.2 Mg/1 Ml Solution 0.2 Mg IH PRN PRN Crestor (Rosuvastatin Calcium) 40 Mg Tablet 20 Mg PO HS Aspirin 81 Mg Tab.chew 1 Tab PO DAILY Percocet 5-325 Mg Tablet (Oxycodone/Acetaminophen) 1 Each Tablet 1 Tab PO PRN Q6HRS PRN Cyclobenzaprine Hcl 10 Mg Tablet 1 Tab PO TID Gabapentin 600 Mg Tablet 600 Mg PO TID Metoprolol Succinate ( Xl ) (Metoprolol Succinate) 25 Mg Tab.er.24h 1 Tab PO DAILY Omeprazole 20 Mg Capsule. 1 Cap PO BID Allergies Allergies: Coded Allergies: No Known Drug Allergies (Unverified , 03/05/20) ROS General: YES: Fatigue, Malaise; No: Chills, Night Sweats, Appetite, Other PSYCHOLOGICAL ROS: No: Anxiety, Behavioral Disorder, Concentration difficultie, Decreased libido, Depression, Disorientation, Hallucinations, Hostility, Irritablity, Memory difficulties, Mood Swings, Obsessive thoughts, Physical abuse, Sexual abuse, Sleep disturbances, Suicidal ideation, Other Eyes: No Blurry vision, No Decreased vision, No Double vision, No Dry eyes, No Excessive tearing, No Eye Pain, No Itchy Eyes, No Loss of vision, No Photophobia, No Scotomata, No Uses contacts, No Uses glasses, No Other HEENT: No: Heacaches, Visual Changes, Hearing change, Nasal congestion, Nasal discharge, Oral lesions, Sinus pain, Sore Throat, Epistaxis, Sneezing, Snoring, Tinnitus, Vertigo, Vocal changes, Other ALLERGY AND IMMUNOLOGY: No: Hives, Insect Bite Sensitivity, Itchy/Watery Eyes, Nasal Congestion, Post Nasal Drip, Seasonal Allergies, Other Hematological and Lymphatic: No: Bleeding Problems, Blood Clots, Blood Transfusions, Brusing, Night Sweats, Pallor, Swollen Lymph Nodes, Other ENDOCRINE: No: Breast Changes, Galactorrhea, Hair Pattern Changes, Hot Flashes, Malaise/lethargy, Mood Swings, Palpitations, Polydipsia/polyuria, Skin Changes, Temperature Intolerance, Unexpected Weight Changes, Other Breast: No New/Changing Breast Lumps, No Nipple changes, No Nipple discharge, No Other Respiratory: YES: Cough, Shortness of breath, SOB with excertion, Tachypnea, Wheezing; No: Hemoptysis, Orthopnea, Pleuritic Pain, Sputum Changes, Stridor, Other Cardiovascular: No Chest Pain, No Palpitations, No Orthopnea, No Paroxysmal Noc. Dyspnea, No Edema, No Lt Headedness, No Other Gastrointestinal: No Nausea, No Vomiting, No Abdominal Pain, No Diarrhea, No Constipation, No Melena, No Hematochezia, No Other Genitourinary: No Dysuria, No Frequency, No Incontinence, No Hematuria, No Retention, No Discharge, No Urgency, No Pain, No Flank Pain, No Other, No , No , No , No , No , No , No Musculoskeletal: Yes Muscular Weakness; No Gait Disturbance, No Joint Pain, No Joint Stiffness, No Joint Swelling, No Muscle Pain, No Pain In:, No Swelling In:, No Other Neurological: No Behavorial Changes, No Bowel/Bladder ControlChng, No Confusion , No Dizziness, No Gait Disturbance, No Headaches, No Impaired Coord/balance, No Memory Loss, No Numbness/Tingling, No Seizures, No Speech Problems, No Tremors, No Visual Changes, No Weakness, No Other Skin: No Dry Skin, No Eczema, No Hair Changes, No Lumps, No Mole Changes, No Mottling, No Nail Changes, No Pruritus, No Rash, No Skin Lesion Changes, No Other, No Acne Physical Exam General: Alert, Oriented X3, Cooperative, moderate distress HEENT: Atraumatic, PERRLA, EOMI, Mucous membr. moist/pink Lungs: Other (Bilateral wheezes, prolonged expiration) Heart: S1S2, RRR, no thrills, no rubs, no gallops, no murmurs Abdomen: Normal bowel sounds, Soft, No tenderness, No hepatosplenomegaly, No masses Rectal Exam: not examined Extremities: No clubbing, No cyanosis, No edema, Normal pulses, No tenderness/swelling Skin: No rashes, No breakdown, No significant lesion Neuro: Normal gait, Normal speech, Strength at 5/5 X4 ext, Normal tone, Sensation intact, Cranial nerves 3-12 NL, Reflexes 2+ Psych/Mental Status: Mental status NL, Mood NL VTE Prophylaxis Ordered VTE Prophylaxis Devices: No VTE Pharmacological Prophylaxi: Yes Assessment/Plan Assessment/Plan A/P: Acute on chronic hypoxic respiratory failure - Likely COPD exacerbation. He has requested COVID 19 testing, flu testing, which are appropriate as well as RSV. Steroids, breathing treatments. Acute asthmatic COPD exaceration - failed outpatient antibiotics and steroids, will give aggressive IV steroids, breathing treatments. Inhalers, will change out for nebulizers once COVID 19 returns negative Shortness of breath - likely due to above, will check BNP as well. no chest pain or sedentary risks. Weakness and debility - likely from above. Will have therapy evaluation early Ascending aortic aneurysm - stable per history. Cont BB Severe COPD on home O2 - in exacerbation as above. Sees Dr. Caballero in outpatient setting H/o Squamous cell carcinoma moderately differentiated diagnosis by FNA biopsy on 02/24/2020 status post radiation therapy with repeat PET scan in September 2020 with no sign of recurrence with right axillary lymph nodes stable FEN - Regular diet PPX - lovenox FULL CODE Dispo - inpatient for above Justifications for Admission Other Justification TOMMY ESTRADA MD Mar 21, 2021 11:39
[2021-03-21] MEDS ORDERED: VITAMIN D PO (11:42)
[2021-03-21] MEDS ORDERED: OMEP40CA7 PO (11:42)
[2021-03-21] MEDS ORDERED: NITR0.4T24 SL (11:42)
[2021-03-21] MEDS ORDERED: DICL75TA PO (11:42)
[2021-03-21] MEDS ORDERED: ACETAMINOPHEN 325 MG TABLET. PO PRN (11:45)
[2021-03-21] MEDS ORDERED: ONDANSETRON PF 4 MG/2 ML VIAL. IVP PRN (11:45)
[2021-03-21] MEDS: methylPREDNISolone SOD SUCC PF 40 MG/ML VIAL. IV SCH ×3 (11:45→21:51)
[2021-03-21] MEDS ORDERED: NITROGLYCERIN SUBLINGUAL 0.4 MG BOTTLE OF 25. SL PRN (12:15)
[2021-03-21] MEDS ORDERED: MAGNESIUM HYDROXIDE 2,400 MG/30 ML ORAL.SUSP. PO PRN (12:15)
[2021-03-21] MEDS ORDERED: ALBUTEROL SULFATE 8GM INHALER. INH PRN (12:30)
[2021-03-21] MEDS: PANTOPRAZOLE 40 MG TABLET.DR. PO SCH (12:30)
[2021-03-21 12:46] LABS: BASO % 1 % (0-3); EOS # 0.2 x10^3/uL (0.0-0.7); EOS % 3 % (0-3); HEMOGLOBIN 14.4 g/dL (13.0-17.5); LYMPH # 0.8 x10^3/uL (1.0-4.8); LYMPH % 13 % (24-48); MEAN CORPUSCULAR HEMOGLOBIN 32 pg (25-35); MEAN CORPUSCULAR HGB CONC 34 g/dL (31-37); MEAN CORPUSCULAR VOLUME 94 fL (79-100); MONO # 0.5 x10^3/uL (0.0-1.1); MONO % 8 % (0-9); NEUT # 4.6 x10^3/uL (1.8-7.7); NEUT % 75 % (31-73); PLATELET COUNT 198 x10^3/uL (140-400); RED BLOOD COUNT 4.45 x10^6/uL (4.30-5.70); WHITE BLOOD COUNT 6.1 x10^3/uL (4.0-11.0)
[2021-03-21 12:57] LABS: PROTHROMBIN TIME PATIENT 11.9 SEC (11.7-14.0)
[2021-03-21] MEDS: MULTIVITAMIN with MINERAL TABLET. PO SCH (13:00)
[2021-03-21] MEDS: METOPROLOL SUCC 24HR ER 25 MG TAB.ER.24H. PO SCH (13:00)
[2021-03-21] MEDS: FLUTICASONE 50MCG/NASAL SPRAY 16GM BOTTLE. NS SCH (13:00)
[2021-03-21 13:05] LABS: ALBUMIN 3.4 g/dL (3.4-5.0); ALBUMIN/GLOBULIN RATIO 1.1 (1.0-1.7); CALCIUM 8.8 mg/dL (8.5-10.1); CREATININE 0.8 mg/dL (0.7-1.3); GFR 95.3; POTASSIUM 3.8 mmol/L (3.5-5.1); TOTAL BILIRUBIN 0.6 mg/dL (0.2-1.0); TOTAL PROTEIN 6.5 g/dL (6.4-8.2)
[2021-03-21 14:14] LABS: INFLUENZA A PATIENT NEGATIVE (NEGATIVE); INFLUENZA B PATIENT NEGATIVE (NEGATIVE)
[2021-03-21] MEDS ORDERED: MAGNESIUM SULFATE 2GM 50 ML IV ONE (14:30)
[2021-03-21] MEDS: CYCLOBENZAPRINE 10 MG TABLET. PO SCH ×2 (14:51→21:51)
[2021-03-21] MEDS: DOXYCYCLINE HYCLATE 100 MG TABLET PO SCH ×2 (14:51→21:51)
[2021-03-21] MEDS: cefTRIAXone IV Push 1 GM VIAL. IVP SCH (14:51)
[2021-03-21] MEDS: GABAPENTIN 300 MG CAPSULE. PO SCH ×2 (14:51→21:50)
[2021-03-21] MEDS: FLUTICASONE/VILANTEROL 200/25 INHALER. INH SCH (14:51)
[2021-03-21] MEDS: ENOXAPARIN 40 MG/0.4 ML SYRINGE. SQ SCH (14:52)
[2021-03-21 15:00] VITALS: BP 111/68
--- NOTE | 2021-03-21 16:13 | RAD ---
EXAM: AP View of the chest DATE: 03/21/2021 11:41 AM INDICATION: Shortness of breath. COMPARISON: 05/07/2020 02/23/2020 09/21/2020 FINDINGS: The heart is not enlarged. Mediastinal and hilar contours are normal. Right lung mass is better assessed on prior imaging. No focal parenchymal airspace opacity. No pleural effusion or pneumothorax. IMPRESSION: 1. Right lung mass is better assessed on prior imaging. 2. Otherwise no acute pulmonary process. Electronically signed by: Nick Santiago MD (03/21/2021 4:11 PM) [id number]
--- NOTE | 2021-03-21 18:41 | EKG ---
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
[2021-03-21 19:00] VITALS: BP 122/81
[2021-03-21] MEDS: ATORVASTATIN CALCIUM 40 MG TABLET. PO SCH (21:50)
[2021-03-21] MEDS: OMEGA-3 FATTY ACIDS/FISH OIL 1,000 MG CAPSULE. PO SCH (21:51)
[2021-03-21 23:17] VITALS: BP 95/56
[2021-03-22 02:42] VITALS: BP 131/75
[2021-03-22 04:33] LABS: BASO % 0 % (0-3); EOS % 0 % (0-3); HEMATOCRIT 41.6 % (39.0-53.0); HEMOGLOBIN 14.1 g/dL (13.0-17.5); LYMPH # 0.4 x10^3/uL (1.0-4.8); LYMPH % 8 % (24-48); MEAN CORPUSCULAR HEMOGLOBIN 32 pg (25-35); MEAN CORPUSCULAR HGB CONC 34 g/dL (31-37); MEAN CORPUSCULAR VOLUME 95 fL (79-100); MONO % 1 % (0-9); NEUT # 4.7 x10^3/uL (1.8-7.7); NEUT % 91 % (31-73); PLATELET COUNT 206 x10^3/uL (140-400); RED BLOOD COUNT 4.37 x10^6/uL (4.30-5.70); RED CELL DISTRIBUTION WIDTH 12.9 % (11.5-14.5); WHITE BLOOD COUNT 5.1 x10^3/uL (4.0-11.0)
[2021-03-22 04:49] LABS: CALCIUM 8.6 mg/dL (8.5-10.1); CREATININE 0.8 mg/dL (0.7-1.3); GFR 95.3
[2021-03-22] MEDS: methylPREDNISolone SOD SUCC PF 40 MG/ML VIAL. IV SCH ×3 (05:53→20:50)
[2021-03-22 07:00] VITALS: BP 114/71
[2021-03-22 07:36] LABS: BILIRUBIN,URINE NEGATIVE (NEG); CLARITY,URINE CLEAR; COLOR,URINE YELLOW; NITRITE,URINE NEGATIVE (NEG); PH,URINE 5.5 (<5.0-8.0); PROTEIN,URINE NEGATIVE (NEG-TRACE); UROBILINOGEN,URINE 0.2 mg/dL (0.2 mg/dL)
[2021-03-22 07:43] LABS: BACTERIA,URINE 0 /HPF (0-FEW); RBC,URINE 0 /HPF (0-2); WBC,URINE RARE /HPF (0-4)
[2021-03-22] MEDS: OMEGA-3 FATTY ACIDS/FISH OIL 1,000 MG CAPSULE. PO SCH ×2 (08:11→20:50)
[2021-03-22] MEDS: GABAPENTIN 300 MG CAPSULE. PO SCH ×3 (08:11→20:50)
[2021-03-22] MEDS: PANTOPRAZOLE 40 MG TABLET.DR. PO SCH (08:11)
[2021-03-22] MEDS: CYCLOBENZAPRINE 10 MG TABLET. PO SCH ×3 (08:11→20:49)
[2021-03-22] MEDS: MULTIVITAMIN with MINERAL TABLET. PO SCH (08:11)
[2021-03-22] MEDS: CALCIUM CARB/VIT D3 500/200 TABLET. PO SCH (08:11)
[2021-03-22] MEDS: METOPROLOL SUCC 24HR ER 25 MG TAB.ER.24H. PO SCH (08:12)
[2021-03-22] MEDS: FLUTICASONE 50MCG/NASAL SPRAY 16GM BOTTLE. NS SCH (08:12)
[2021-03-22] MEDS: FLUTICASONE/VILANTEROL 200/25 INHALER. INH SCH (08:12)
[2021-03-22] MEDS: DOXYCYCLINE HYCLATE 100 MG TABLET PO SCH ×2 (08:12→20:49)
[2021-03-22 11:00] VITALS: BP 119/74
[2021-03-22] MEDS: ALBUTEROL SULFATE 2.5 MG/3 ML NEBU. NEB SCH ×3 (11:30→19:43)
--- NOTE | 2021-03-22 11:39 | NUR ---
SS following for discharge planning. SS reviewed pt chart and discussed with pt RN. Pt is from home with spouse and is currently requiring oxygen at two liters nasal canula. COVID19 negative. Pt has home oxygen. Pulmonology consulted. PT/OT ordered. SS will continue to follow for discharge planning.
--- NOTE | 2021-03-22 11:46 | CONS ---
DATE OF CONSULTATION: 03/22/2021 PULMONARY CONSULTATION ATTENDING PHYSICIAN: Gary Gutierrez MD REASON FOR CONSULTATION: Respiratory failure. HISTORY OF PRESENT ILLNESS: The patient is a 70-year-old male who has past medical history of severe COPD. He has been on home oxygen at 2 liters on a 24-hour basis. He also has a history of squamous cell carcinoma, moderately differentiated. This was diagnosed in February of last year. He is status post radiation with a repeat PET scan in 09/2020 showing no signs of recurrence. The patient was seen by my partner, Dr. Caballero in the office yesterday after he has been having some dyspnea with exertion and cough. The patient was exposed to RSV virus by his great grandchild. The patient 3 weeks ago had a fever as high as 103. He was tried with on oral antibiotics and steroids as an outpatient, but it did not improve his symptoms. The patient was noted to be dyspneic and gurgling in secretions at the office. He was hospitalized for further evaluation. His chest x-ray revealed no obvious mass or infiltrates. The patient is appropriately vaccinated for COVID. His rapid test was negative. He feels better, currently down to 2 liters of oxygen. He is afebrile. PAST MEDICAL HISTORY: Significant for history of hypertension, history of squamous cell carcinoma of right lung, T1b N0 M0. History of chronic obstructive pulmonary disease, history of chronic hypoxic respiratory failure. PAST SURGICAL HISTORY: Total hip replacement on the left side. FAMILY HISTORY: Hypertension. SOCIAL HISTORY: Quit tobacco in 1988. REVIEW OF SYSTEMS: A 12-point system obtained. Pertinent positives discussed in my present illness, otherwise noncontributory. All systems that were negative were reviewed as well. ALLERGIES: None. MEDICATIONS: Reviewed as listed in the MRAD including empiric antibiotics and Lovenox for DVT prophylaxis and bronchodilators. PHYSICAL EXAMINATION: VITAL SIGNS: Reviewed. Blood pressure stable, pulse ox 94% on 2 liters. NECK: Supple. LUNGS: With diminished breath sounds. CARDIOVASCULAR: With a regular rate. ABDOMEN: Soft. EXTREMITIES: With no pitting edema. LABORATORY DATA: Reviewed. His COVID RNA is negative. BUN and creatinine normal. ProBNP is 244. White cell count 5.1, hemoglobin 14.1 and platelets are 206. IMPRESSION: 1. Dyspnea with acute on chronic hypoxic respiratory failure secondary to viral pneumonia causing exacerbation of his chronic obstructive pulmonary disease. The patient's great granddaughter was diagnosed with RSV and he probably had the same virus. Initially, he had a fever up to 103. He is clinically improving. Clinically less likely superimposed bacterial pneumonia, but cannot be ruled out. 2. Underlying chronic obstructive pulmonary disease with chronic hypoxic respiratory failure on home oxygen at 2 liters. 3. Squamous cell carcinoma, involving right lung, stage T1b N0 M0 status post radiation with stable PET scan in September of this year. RECOMMENDATIONS: 1. Discussed with the patient and RN. We will continue present oxygen. He is down to baseline 2 liters. 2. Empiric antibiotics. 3. Bronchodilators. 4. Lovenox for DVT prophylaxis. 5. IV steroids with gradual taper. 6. Likely discharge in next 48 hours. He is still very weak. Discussed with RN. PAL/JAMES DR: PAL/marilin TID: [id number]
--- NOTE | 2021-03-22 12:33 | PDOC ---
[employer] PROGRESS NOTE Date of Service DOS: DATE: 03/22/21 TIME: 12:32 Chief Complaint Chief Complaint Acute on chronic hypoxic respiratory failure - COPD exacerbation . Steroids, breathing treatments. abx Shortness of breath acute on chronic hypoxic respiratory failure Weakness and debility Ascending aortic aneurysm - stable Severe COPD on home O2 - i H/o Squamous cell carcinoma moderately differentiated d History of Present Illness History of Present Illness up to chiar, eating HR 110 at rest, cont above, pt and ot, very weak, cannot walk more than about 15 feet Vitals/I&O Vitals/I&O: Vital Signs Date Time Temp Pulse Resp B/P (MAP) Pulse Ox O2 Delivery O2 Flow Rate FiO2 03/22/21 11:33 95 Nasal Cannula 2.0 03/22/21 11:00 97.7 86 18 119/74 (89) 97.7 I & O 03/21/21 03/21/21 03/22/21 15:00 23:00 07:00 Intake Total 237 ml 150 ml 500 ml Output Total 700 ml Balance 237 ml 150 ml -200 ml Physical Exam General: Alert, Oriented X3, Cooperative, mild distress Abdomen: Normal bowel sounds, Soft, No tenderness, No hepatosplenomegaly, No masses Extremities: No clubbing, No cyanosis, No edema, Normal pulses, No tenderness/swelling Skin: No rashes, No breakdown, No significant lesion Labs Labs: Laboratory Tests Test 03/21/21 12:35 03/21/21 12:50 03/21/21 13:00 03/21/21 14:45 White Blood Count 6.1 x10^3/uL (4.0-11.0) Red Blood Count 4.45 x10^6/uL (4.30-5.70) Hemoglobin 14.4 g/dL (13.0-17.5) Hematocrit 42.0 % (39.0-53.0) Mean Corpuscular Volume 94 fL (79-100) Mean Corpuscular Hemoglobin 32 pg (25-35) Mean Corpuscular Hemoglobin Concent 34 g/dL (31-37) Red Cell Distribution Width 13.0 % (11.5-14.5) Platelet Count 198 x10^3/uL (140-400) Neutrophils (%) (Auto) 75 % (31-73) Lymphocytes (%) (Auto) 13 % (24-48) Monocytes (%) (Auto) 8 % (0-9) Eosinophils (%) (Auto) 3 % (0-3) Basophils (%) (Auto) 1 % (0-3) Neutrophils # (Auto) 4.6 x10^3/uL (1.8-7.7) Lymphocytes # (Auto) 0.8 x10^3/uL (1.0-4.8) Monocytes # (Auto) 0.5 x10^3/uL (0.0-1.1) Eosinophils # (Auto) 0.2 x10^3/uL (0.0-0.7) Basophils # (Auto) 0.0 x10^3/uL (0.0-0.2) Prothrombin Time 11.9 SEC (11.7-14.0) Prothromb Time International Ratio 0.9 (0.8-1.1) Sodium Level 138 mmol/L (136-145) Potassium Level 3.8 mmol/L (3.5-5.1) Chloride Level 105 mmol/L (98-107) Carbon Dioxide Level 26 mmol/L (21-32) Anion Gap 7 (6-14) Blood Urea Nitrogen 16 mg/dL (8-26) Creatinine 0.8 mg/dL (0.7-1.3) Estimated GFR (Cockcroft-Gault) 95.3 BUN/Creatinine Ratio 20 (6-20) Glucose Level 96 mg/dL (70-99) Calcium Level 8.8 mg/dL (8.5-10.1) Total Bilirubin 0.6 mg/dL (0.2-1.0) Aspartate Amino Transf (AST/SGOT) 14 U/L (15-37) Alanine Aminotransferase (ALT/SGPT) 32 U/L (16-63) Alkaline Phosphatase 83 U/L (46-116) Total Protein 6.5 g/dL (6.4-8.2) Albumin 3.4 g/dL (3.4-5.0) Albumin/Globulin Ratio 1.1 (1.0-1.7) Influenza Type A Antigen Negative (NEGATIVE) Influenza Type B Antigen Negative (NEGATIVE) SARS-CoV-2 Antigen (Rapid) Negative (NEGATIVE) Lactic Acid Level 1.3 mmol/L (0.4-2.0) Magnesium Level 1.8 mg/dL (1.8-2.4) QL-Xex-K-Type Natriuretic Peptide 244 pg/mL (0-124) Thyroid Stimulating Hormone (TSH) 1.408 uIU/mL (0.358-3.74) SARS-CoV-2 RNA (MACK) Negative (Negative) Test 03/22/21 04:00 03/22/21 07:20 White Blood Count 5.1 x10^3/uL (4.0-11.0) Red Blood Count 4.37 x10^6/uL (4.30-5.70) Hemoglobin 14.1 g/dL (13.0-17.5) Hematocrit 41.6 % (39.0-53.0) Mean Corpuscular Volume 95 fL (79-100) Mean Corpuscular Hemoglobin 32 pg (25-35) Mean Corpuscular Hemoglobin Concent 34 g/dL (31-37) Red Cell Distribution Width 12.9 % (11.5-14.5) Platelet Count 206 x10^3/uL (140-400) Neutrophils (%) (Auto) 91 % (31-73) Lymphocytes (%) (Auto) 8 % (24-48) Monocytes (%) (Auto) 1 % (0-9) Eosinophils (%) (Auto) 0 % (0-3) Basophils (%) (Auto) 0 % (0-3) Neutrophils # (Auto) 4.7 x10^3/uL (1.8-7.7) Lymphocytes # (Auto) 0.4 x10^3/uL (1.0-4.8) Monocytes # (Auto) 0.0 x10^3/uL (0.0-1.1) Eosinophils # (Auto) 0.0 x10^3/uL (0.0-0.7) Basophils # (Auto) 0.0 x10^3/uL (0.0-0.2) Sodium Level 140 mmol/L (136-145) Potassium Level 4.0 mmol/L (3.5-5.1) Chloride Level 104 mmol/L (98-107) Carbon Dioxide Level 26 mmol/L (21-32) Anion Gap 10 (6-14) Blood Urea Nitrogen 19 mg/dL (8-26) Creatinine 0.8 mg/dL (0.7-1.3) Estimated GFR (Cockcroft-Gault) 95.3 Glucose Level 147 mg/dL (70-99) Calcium Level 8.6 mg/dL (8.5-10.1) Urine Collection Type Unknown Urine Color Yellow Urine Clarity Clear Urine pH 5.5 (<5.0-8.0) Urine Specific [place] 1.020 (1.000-1.030) Urine Protein Negative mg/dL (NEG-TRACE) Urine Glucose (UA) Negative mg/dL (NEG) Urine Ketones (Stick) Negative mg/dL (NEG) Urine Blood Negative (NEG) Urine Nitrite Negative (NEG) Urine Bilirubin Negative (NEG) Urine Urobilinogen Dipstick 0.2 mg/dL (0.2 mg/dL) Urine Leukocyte Esterase Negative (NEG) Urine RBC 0 /HPF (0-2) Urine WBC Rare /HPF (0-4) Urine Squamous Epithelial Cells Occ /LPF Urine Bacteria 0 /HPF (0-FEW) Urine Mucus Mod /LPF Review of Systems Review of Systems: fever weakness cough, Comment Review of Relevant I have reviewed the following items cathi (where applicable) has been applied. Medications: Current Medications Medications (Trade) Dose Ordered Sig/Ina Route PRN Reason Start Time Stop Time Status Last Admin Dose Admin Cyclobenzaprine HCl (Flexeril) 10 mg TID PO 03/21/21 14:00 03/22/21 08:11 Metoprolol Succinate (Toprol Xl) 25 mg DAILY PO 03/21/21 13:00 03/22/21 08:12 Calcium/Vitamin D (Oscal D 500mg/ 200uts) 1 tab DAILY PO 03/22/21 09:00 03/22/21 08:11 Fish Oil (Fish Oil) 1,000 mg BID PO 03/21/21 21:00 03/22/21 08:11 Fluticasone Propionate (Flonase) 2 spray DAILY NS 03/21/21 13:00 03/22/21 08:12 Gabapentin (Neurontin) 600 mg TID PO 03/21/21 14:00 03/22/21 08:11 Multivitamins (Thera M Plus) 1 tab DAILY PO 03/21/21 13:00 03/22/21 08:11 Atorvastatin Calcium (Lipitor) 80 mg QHS PO 03/21/21 21:00 03/21/21 21:50 Ceftriaxone Sodium (Rocephin) 1 gm Q24H IVP 03/21/21 14:00 03/21/21 14:51 Doxycycline Hyclate (Vibra-Tab) 100 mg BID PO 03/21/21 14:00 03/22/21 08:12 Enoxaparin Sodium (Lovenox 40mg Syringe) 40 mg Q24H SQ 03/21/21 13:00 03/21/21 14:52 Fluticasone/ Vilanterol (Breo Ellipta 200-25 Mcg) 1 puff DAILY INH 03/21/21 13:00 03/22/21 08:12 Magnesium Sulfate 50 ml @ 25 mls/hr 1X ONCE IV 03/21/21 14:30 03/21/21 16:29 DC 03/21/21 14:53 Albuterol Sulfate (Ventolin Neb Soln) 2.5 mg RTQID NEB 03/22/21 12:00 03/22/21 11:30 Justifications for Admission General Conditions Poss tachycardia?: Yes Justification for admission: Patient has tachycardia (> 100 beats per minute) which is not readily corrected by appropriate treatment within 12 to 24 hours. Other Justification MAUREEN WOO MD Mar 22, 2021 12:33
[2021-03-22] MEDS: ENOXAPARIN 40 MG/0.4 ML SYRINGE. SQ SCH (14:12)
[2021-03-22] MEDS: cefTRIAXone IV Push 1 GM VIAL. IVP SCH (14:14)
[2021-03-22 15:00] VITALS: BP 117/70
[2021-03-22 19:00] VITALS: BP 111/65
[2021-03-22] MEDS: ATORVASTATIN CALCIUM 40 MG TABLET. PO SCH (20:49)
[2021-03-22 22:47] VITALS: BP 112/68
[2021-03-23 02:39] VITALS: BP 117/69
[2021-03-23] MEDS: PANTOPRAZOLE 40 MG TABLET.DR. PO SCH (06:02)
[2021-03-23] MEDS: methylPREDNISolone SOD SUCC PF 40 MG/ML VIAL. IV SCH ×2 (06:02→20:45)
[2021-03-23 07:00] VITALS: BP 118/75
[2021-03-23] MEDS: ALBUTEROL SULFATE 2.5 MG/3 ML NEBU. NEB SCH ×4 (07:50→20:27)
--- NOTE | 2021-03-23 08:11 | PDOC ---
PULMONARY PROGRESS NOTES DATE: 03/23/21 TIME: 08:09 Subjective on 02 sob better has cough on home 02 2lpm Vitals Vital Signs Date Time Temp Pulse Resp B/P (MAP) Pulse Ox O2 Delivery O2 Flow Rate FiO2 03/23/21 07:50 96 Nasal Cannula 2.5 03/23/21 07:00 97.4 75 18 118/75 (89) 97.4 ROS: No Nausea General: Alert Lungs: Crackles Cardiovascular: S1, S2 Abdomen: Soft Neuro Exam: Alert Extremities: Other Skin: Warm Labs Laboratory Tests Test 03/21/21 12:35 03/21/21 12:50 03/21/21 13:00 03/21/21 14:45 White Blood Count 6.1 x10^3/uL (4.0-11.0) Red Blood Count 4.45 x10^6/uL (4.30-5.70) Hemoglobin 14.4 g/dL (13.0-17.5) Hematocrit 42.0 % (39.0-53.0) Mean Corpuscular Volume 94 fL (79-100) Mean Corpuscular Hemoglobin 32 pg (25-35) Mean Corpuscular Hemoglobin Concent 34 g/dL (31-37) Red Cell Distribution Width 13.0 % (11.5-14.5) Platelet Count 198 x10^3/uL (140-400) Neutrophils (%) (Auto) 75 % (31-73) Lymphocytes (%) (Auto) 13 % (24-48) Monocytes (%) (Auto) 8 % (0-9) Eosinophils (%) (Auto) 3 % (0-3) Basophils (%) (Auto) 1 % (0-3) Neutrophils # (Auto) 4.6 x10^3/uL (1.8-7.7) Lymphocytes # (Auto) 0.8 x10^3/uL (1.0-4.8) Monocytes # (Auto) 0.5 x10^3/uL (0.0-1.1) Eosinophils # (Auto) 0.2 x10^3/uL (0.0-0.7) Basophils # (Auto) 0.0 x10^3/uL (0.0-0.2) Prothrombin Time 11.9 SEC (11.7-14.0) Prothromb Time International Ratio 0.9 (0.8-1.1) Sodium Level 138 mmol/L (136-145) Potassium Level 3.8 mmol/L (3.5-5.1) Chloride Level 105 mmol/L (98-107) Carbon Dioxide Level 26 mmol/L (21-32) Anion Gap 7 (6-14) Blood Urea Nitrogen 16 mg/dL (8-26) Creatinine 0.8 mg/dL (0.7-1.3) Estimated GFR (Cockcroft-Gault) 95.3 BUN/Creatinine Ratio 20 (6-20) Glucose Level 96 mg/dL (70-99) Calcium Level 8.8 mg/dL (8.5-10.1) Total Bilirubin 0.6 mg/dL (0.2-1.0) Aspartate Amino Transf (AST/SGOT) 14 U/L (15-37) Alanine Aminotransferase (ALT/SGPT) 32 U/L (16-63) Alkaline Phosphatase 83 U/L (46-116) Total Protein 6.5 g/dL (6.4-8.2) Albumin 3.4 g/dL (3.4-5.0) Albumin/Globulin Ratio 1.1 (1.0-1.7) Influenza Type A Antigen Negative (NEGATIVE) Influenza Type B Antigen Negative (NEGATIVE) SARS-CoV-2 Antigen (Rapid) Negative (NEGATIVE) Lactic Acid Level 1.3 mmol/L (0.4-2.0) Magnesium Level 1.8 mg/dL (1.8-2.4) BO-Rkc-M-Type Natriuretic Peptide 244 pg/mL (0-124) Thyroid Stimulating Hormone (TSH) 1.408 uIU/mL (0.358-3.74) SARS-CoV-2 RNA (MACK) Negative (Negative) Test 03/22/21 04:00 03/22/21 07:20 White Blood Count 5.1 x10^3/uL (4.0-11.0) Red Blood Count 4.37 x10^6/uL (4.30-5.70) Hemoglobin 14.1 g/dL (13.0-17.5) Hematocrit 41.6 % (39.0-53.0) Mean Corpuscular Volume 95 fL (79-100) Mean Corpuscular Hemoglobin 32 pg (25-35) Mean Corpuscular Hemoglobin Concent 34 g/dL (31-37) Red Cell Distribution Width 12.9 % (11.5-14.5) Platelet Count 206 x10^3/uL (140-400) Neutrophils (%) (Auto) 91 % (31-73) Lymphocytes (%) (Auto) 8 % (24-48) Monocytes (%) (Auto) 1 % (0-9) Eosinophils (%) (Auto) 0 % (0-3) Basophils (%) (Auto) 0 % (0-3) Neutrophils # (Auto) 4.7 x10^3/uL (1.8-7.7) Lymphocytes # (Auto) 0.4 x10^3/uL (1.0-4.8) Monocytes # (Auto) 0.0 x10^3/uL (0.0-1.1) Eosinophils # (Auto) 0.0 x10^3/uL (0.0-0.7) Basophils # (Auto) 0.0 x10^3/uL (0.0-0.2) Sodium Level 140 mmol/L (136-145) Potassium Level 4.0 mmol/L (3.5-5.1) Chloride Level 104 mmol/L (98-107) Carbon Dioxide Level 26 mmol/L (21-32) Anion Gap 10 (6-14) Blood Urea Nitrogen 19 mg/dL (8-26) Creatinine 0.8 mg/dL (0.7-1.3) Estimated GFR (Cockcroft-Gault) 95.3 Glucose Level 147 mg/dL (70-99) Calcium Level 8.6 mg/dL (8.5-10.1) Urine Collection Type Unknown Urine Color Yellow Urine Clarity Clear Urine pH 5.5 (<5.0-8.0) Urine Specific [place] 1.020 (1.000-1.030) Urine Protein Negative mg/dL (NEG-TRACE) Urine Glucose (UA) Negative mg/dL (NEG) Urine Ketones (Stick) Negative mg/dL (NEG) Urine Blood Negative (NEG) Urine Nitrite Negative (NEG) Urine Bilirubin Negative (NEG) Urine Urobilinogen Dipstick 0.2 mg/dL (0.2 mg/dL) Urine Leukocyte Esterase Negative (NEG) Urine RBC 0 /HPF (0-2) Urine WBC Rare /HPF (0-4) Urine Squamous Epithelial Cells Occ /LPF Urine Bacteria 0 /HPF (0-FEW) Urine Mucus Mod /LPF Medications Active Scripts Medications Dose Route/Sig Max Daily Dose Days Date Category [Vitamin D] 50,000 Units PO WEEKLY 03/21/21 Reported Omeprazole 40 Mg Capsule.dr 1 Cap PO DAILY 03/21/21 Reported Diclofenac Sodium 75 Mg Tablet.dr 1 Tab PO BID 03/21/21 Reported Nitrostat (Nitroglycerin) 0.4 Mg Tab.subl 0.4 Mg SL PRN Q5MIN PRN 03/21/21 Reported [place] 3-6-9 1,200 mg Softgel (Fish Oil/Borage/Flax/Om3,6,9#1) 1,200 Mg Capsule 1 Cap PO BID 30 02/20/20 Reported Calcium 600 + Vit D3 800 Tab (Calcium Carbonate/Vitamin D3) 1 Each Tablet 1 Tab PO DAILY 30 02/20/20 Reported Centrum Silver Tablet (Multivits-Min/Fa/Lycopene/Lut) 1 Each Tablet 1 Each PO DAILY 02/20/20 Reported Symbicort 160-4.5 Mcg Inhaler (Budesonide/Formoterol Fumarate) 10.2 Gm Hfa.aer.ad 2 Puff IH BID 02/20/20 Reported Proair Hfa Inhaler (Albuterol Sulfate) 8.5 Gm Hfa.aer.ad 2 Puff IH PRN Q4-6HRS PRN 21 02/20/20 Reported Flonase Allergy Relief (Fluticasone Propionate) 9.9 Ml [place].susp 2 Sprays NS DAILY 02/20/20 Reported Albuterol Sulfate Conc Neb Soln (Albuterol Sulfate) 2.5 Mg/0.5 Ml Vial.neb 1 Vial NEB Q6HRS 02/20/20 Reported Ipratropium [place] 0.2 Mg/1 Ml Solution 0.2 Mg IH PRN PRN 02/20/20 Reported Crestor (Rosuvastatin Calcium) 40 Mg Tablet 20 Mg PO HS 02/20/20 Reported Cyclobenzaprine Hcl 10 Mg Tablet 1 Tab PO TID 02/20/20 Reported Gabapentin 600 Mg Tablet 600 Mg PO TID 02/20/20 Reported Metoprolol Succinate ( Xl ) (Metoprolol Succinate) 25 Mg Tab.er.24h 1 Tab PO DAILY 02/20/20 Reported Impression . IMPRESSION: 1. Dyspnea with acute on chronic hypoxic respiratory failure secondary to viral pneumonia causing exacerbation of his chronic obstructive pulmonary disease. The patient's great granddaughter was diagnosed with RSV and he probably had the same virus. Initially, he had a fever up to 103. He is clinically improving. Clinically less likely superimposed bacterial pneumonia, but cannot be ruled out. 2. Underlying chronic obstructive pulmonary disease with chronic hypoxic respiratory failure on home oxygen at 2 liters. 3. Squamous cell carcinoma, involving right lung, stage T1b N0 M0 status post radiation with stable PET scan in September of this year. Plan . RECOMMENDATIONS: 1. 02 titration continue present oxygen. He is down to baseline 2 liters. 2. Empiric antibiotics. 3. Bronchodilators. 4. Lovenox for DVT prophylaxis. 5. change solumedrol to 40 q 8hrs discussed w KRISH Navarro MD Mar 23, 2021 08:11
[2021-03-23] MEDS: GABAPENTIN 300 MG CAPSULE. PO SCH ×3 (09:16→20:45)
[2021-03-23] MEDS: FLUTICASONE 50MCG/NASAL SPRAY 16GM BOTTLE. NS SCH (09:16)
[2021-03-23] MEDS: OMEGA-3 FATTY ACIDS/FISH OIL 1,000 MG CAPSULE. PO SCH ×2 (09:17→20:45)
[2021-03-23] MEDS: CALCIUM CARB/VIT D3 500/200 TABLET. PO SCH (09:17)
[2021-03-23] MEDS: FLUTICASONE/VILANTEROL 200/25 INHALER. INH SCH (09:17)
[2021-03-23] MEDS: CYCLOBENZAPRINE 10 MG TABLET. PO SCH ×3 (09:17→20:45)
[2021-03-23] MEDS: DOXYCYCLINE HYCLATE 100 MG TABLET PO SCH ×2 (09:17→20:45)
[2021-03-23] MEDS: MULTIVITAMIN with MINERAL TABLET. PO SCH (09:17)
[2021-03-23] MEDS: METOPROLOL SUCC 24HR ER 25 MG TAB.ER.24H. PO SCH (09:17)
[2021-03-23 11:00] VITALS: BP 114/64
[2021-03-23 14:42] VITALS: BP 117/64
[2021-03-23] MEDS: ENOXAPARIN 40 MG/0.4 ML SYRINGE. SQ SCH (15:25)
[2021-03-23] MEDS: cefTRIAXone IV Push 1 GM VIAL. IVP SCH (15:25)
--- NOTE | 2021-03-23 17:24 | PDOC ---
PROGRESS NOTES Date of Service: DATE: 03/23/21 TIME: 17:22 Chief Complaint Chief Complaint Acute on chronic hypoxic respiratory failure - COPD exacerbation . Steroids, breathing treatments. abx Shortness of breath acute on chronic hypoxic respiratory failure Weakness and debility Ascending aortic aneurysm - stable Severe COPD on home O2 - i H/o Squamous cell carcinoma moderately differentiated d Plan: Continue current supportive measures Follow recommendations from pulmonology Encourage ambulation Continue with physical therapy Reassess in the a.m. Further recommendations based on the clinical course History of Present Illness History of Present Illness up to chiar, eating HR 110 at rest, cont above, pt and ot, very weak, cannot walk more than about 15 feet 03/23/2021 No acute events reported overnight, case discussed with nursing staff patient in no acute distress no complaints during my visit Vitals Vitals Vital Signs Date Time Temp Pulse Resp B/P (MAP) Pulse Ox O2 Delivery O2 Flow Rate FiO2 03/23/21 15:45 96 Nasal Cannula 2.5 03/23/21 14:42 98.0 89 18 117/64 (81) 98.0 Physical Exam General: Alert, Oriented X3, Cooperative, mild distress Lungs: Crackles Abdomen: Normal bowel sounds, Soft, No tenderness, No hepatosplenomegaly, No masses Extremities: No clubbing, No cyanosis, No edema, Normal pulses, No tenderness/swelling Skin: No rashes, No breakdown, No significant lesion Comment Review of Relevant I have reviewed the following items cathi (where applicable) has been applied. Labs Laboratory Tests Test 03/22/21 04:00 03/22/21 07:20 White Blood Count 5.1 x10^3/uL (4.0-11.0) Red Blood Count 4.37 x10^6/uL (4.30-5.70) Hemoglobin 14.1 g/dL (13.0-17.5) Hematocrit 41.6 % (39.0-53.0) Mean Corpuscular Volume 95 fL (79-100) Mean Corpuscular Hemoglobin 32 pg (25-35) Mean Corpuscular Hemoglobin Concent 34 g/dL (31-37) Red Cell Distribution Width 12.9 % (11.5-14.5) Platelet Count 206 x10^3/uL (140-400) Neutrophils (%) (Auto) 91 % (31-73) Lymphocytes (%) (Auto) 8 % (24-48) Monocytes (%) (Auto) 1 % (0-9) Eosinophils (%) (Auto) 0 % (0-3) Basophils (%) (Auto) 0 % (0-3) Neutrophils # (Auto) 4.7 x10^3/uL (1.8-7.7) Lymphocytes # (Auto) 0.4 x10^3/uL (1.0-4.8) Monocytes # (Auto) 0.0 x10^3/uL (0.0-1.1) Eosinophils # (Auto) 0.0 x10^3/uL (0.0-0.7) Basophils # (Auto) 0.0 x10^3/uL (0.0-0.2) Sodium Level 140 mmol/L (136-145) Potassium Level 4.0 mmol/L (3.5-5.1) Chloride Level 104 mmol/L (98-107) Carbon Dioxide Level 26 mmol/L (21-32) Anion Gap 10 (6-14) Blood Urea Nitrogen 19 mg/dL (8-26) Creatinine 0.8 mg/dL (0.7-1.3) Estimated GFR (Cockcroft-Gault) 95.3 Glucose Level 147 mg/dL (70-99) Calcium Level 8.6 mg/dL (8.5-10.1) Urine Collection Type Unknown Urine Color Yellow Urine Clarity Clear Urine pH 5.5 (<5.0-8.0) Urine Specific [place] 1.020 (1.000-1.030) Urine Protein Negative mg/dL (NEG-TRACE) Urine Glucose (UA) Negative mg/dL (NEG) Urine Ketones (Stick) Negative mg/dL (NEG) Urine Blood Negative (NEG) Urine Nitrite Negative (NEG) Urine Bilirubin Negative (NEG) Urine Urobilinogen Dipstick 0.2 mg/dL (0.2 mg/dL) Urine Leukocyte Esterase Negative (NEG) Urine RBC 0 /HPF (0-2) Urine WBC Rare /HPF (0-4) Urine Squamous Epithelial Cells Occ /LPF Urine Bacteria 0 /HPF (0-FEW) Urine Mucus Mod /LPF Microbiology 03/21/21 Blood Culture - Preliminary, Resulted NO GROWTH AFTER 2 DAYS Medications Current Medications Methylprednisolone Sodium Succinate (SOLU-Medrol 40MG VIAL) 80 mg Q8HRS IV Last administered on 03/23/21 06:02; Start 03/21/21 at 11:45; Stop 03/23/21 at 15:21; Status DC Acetaminophen (Tylenol) 650 mg PRN Q6HRS PRN PO MILD PAIN / TEMP > 100.3'F; Start 03/21/21 at 11:45 Ondansetron HCl (Zofran) 4 mg PRN Q4HRS PRN IVP NAUSEA/VOMITING; Start 03/21/21 at 11:45 Guaifenesin (Robitussin Dm) 10 ml PRN Q6HRS PRN PO COUGH; Start 03/21/21 at 11:45 Cyclobenzaprine HCl (Flexeril) 10 mg TID PO Last administered on 03/23/21at 15:25; Start 03/21/21 at 14:00 Metoprolol Succinate (Toprol Xl) 25 mg DAILY PO Last administered on 03/23/21 09:17; Start 03/21/21 at 13:00 Nitroglycerin (Nitrostat) 0.4 mg PRN Q5MIN PRN SL CHEST PAIN; Start 03/21/21 at 12:15 Calcium/Vitamin D (Oscal D 500mg/ 200uts) 1 tab DAILY PO Last administered on 03/23/21 09:17; Start 03/22/21 at 09:00 Fish Oil (Fish Oil) 1,000 mg BID PO Last administered on 03/23/21at 09:17; Start 03/21/21 at 21:00 Fluticasone Propionate (Flonase) 2 spray DAILY NS Last administered on 03/23/21at 09:16; Start 03/21/21 at 13:00 Gabapentin (Neurontin) 600 mg TID PO Last administered on 03/23/21at 15:24; Start 03/21/21 at 14:00 Multivitamins (Thera M Plus) 1 tab DAILY PO Last administered on 03/23/21 09:17; Start 03/21/21 at 13:00 Pantoprazole Sodium (Protonix) 40 mg DAILYAC PO Last administered on 03/23/21 06:02; Start 03/21/21 at 12:30 Atorvastatin Calcium (Lipitor) 80 mg QHS PO Last administered on 03/22/21at 20:49; Start 03/21/21 at 21:00 Ceftriaxone Sodium (Rocephin) 1 gm Q24H IVP Last administered on 03/23/21at 15:25; Start 03/21/21 at 14:00 Doxycycline Hyclate (Vibra-Tab) 100 mg BID PO Last administered on 03/23/21at 09:17; Start 03/21/21 at 14:00 Magnesium Hydroxide (Milk Of Magnesia) 2,400 mg PRN Q12HR PRN PO CONSTIPATION; Start 03/21/21 at 12:15 Enoxaparin Sodium (Lovenox 40mg Syringe) 40 mg Q24H SQ Last administered on 03/23/21at 15:25; Start 03/21/21 at 13:00 Fluticasone/ Vilanterol (Breo Ellipta 200-25 Mcg) 1 puff DAILY INH Last administered on 03/23/21at 09:17; Start 03/21/21 at 13:00 Albuterol Sulfate (Ventolin Hfa) 2 puff PRN Q4HRS PRN INH SHORTNESS OF BREATH; Start 03/21/21 at 12:30 Magnesium Sulfate 50 ml @ 25 mls/hr 1X ONCE IV Last administered on 03/21/21at 14:53; Start 03/21/21 at 14:30; Stop 03/21/21 at 16:29; Status DC Albuterol Sulfate (Ventolin Neb Soln) 2.5 mg RTQID NEB Last administered on 03/23/21at 15:45; Start 03/22/21 at 12:00 Methylprednisolone Sodium Succinate (SOLU-Medrol 40MG VIAL) 40 mg Q8HRS IV ; Start 03/23/21 at 22:00 Active Scripts Active Reported [Vitamin D] 50,000 Units PO WEEKLY Omeprazole 40 Mg Capsule. 1 Cap PO DAILY Diclofenac Sodium 75 Mg Tablet.dr 1 Tab PO BID Nitrostat (Nitroglycerin) 0.4 Mg Tab.subl 0.4 Mg SL PRN Q5MIN PRN [place] 3-6-9 1,200 mg Softgel (Fish Oil/Borage/Flax/Om3,6,9#1) 1,200 Mg Capsule 1 Cap PO BID 30 Days Calcium 600 + Vit D3 800 Tab (Calcium Carbonate/Vitamin D3) 1 Each Tablet 1 Tab PO DAILY 30 Days Centrum Silver Tablet (Multivits-Min/Fa/Lycopene/Lut) 1 Each Tablet 1 Each PO DAILY Symbicort 160-4.5 Mcg Inhaler (Budesonide/Formoterol Fumarate) 10.2 Gm Hfa.aer.ad 2 Puff IH BID Proair Hfa Inhaler (Albuterol Sulfate) 8.5 Gm Hfa.aer.ad 2 Puff IH PRN Q4-6HRS PRN 21 Days Flonase Allergy Relief (Fluticasone Propionate) 9.9 Ml [place].susp 2 Sprays NS DAILY Albuterol Sulfate Conc Neb Soln (Albuterol Sulfate) 2.5 Mg/0.5 Ml Vial.neb 1 Vial NEB Q6HRS Ipratropium [place] 0.2 Mg/1 Ml Solution 0.2 Mg IH PRN PRN Crestor (Rosuvastatin Calcium) 40 Mg Tablet 20 Mg PO HS Cyclobenzaprine Hcl 10 Mg Tablet 1 Tab PO TID Gabapentin 600 Mg Tablet 600 Mg PO TID Metoprolol Succinate ( Xl ) (Metoprolol Succinate) 25 Mg Tab.er.24h 1 Tab PO DAILY Vitals/I & O Vital Sign - Last 24 Hours 03/22/21 03/22/21 03/22/21 03/22/21 19:00 19:44 20:00 22:47 Temp 97.7 98.0 97.7 98.0 Pulse 85 98 Resp 19 18 B/P (MAP) 111/65 (80) 112/68 (83) Pulse Ox 92 96 93 O2 Delivery Nasal Cannula Nasal Cannula Nasal Cannula Nasal Cannula O2 Flow Rate 2.0 2.0 2.0 2.0 03/23/21 03/23/21 03/23/21 03/23/21 02:39 07:00 07:50 08:00 Temp 98.1 97.4 98.1 97.4 Pulse 96 75 Resp 18 18 B/P (MAP) 117/69 (85) 118/75 (89) Pulse Ox 98 96 96 O2 Delivery Nasal Cannula Nasal Cannula Nasal Cannula Nasal Cannula O2 Flow Rate 2.0 2.0 2.5 2.0 03/23/21 03/23/21 03/23/21 03/23/21 09:17 11:00 11:42 14:42 Temp 98.0 98.0 98.0 98.0 Pulse 75 90 89 Resp 18 18 B/P (MAP) 118/75 114/64 (81) 117/64 (81) Pulse Ox 96 98 97 O2 Delivery Nasal Cannula Nasal Cannula Nasal Cannula O2 Flow Rate 2.0 2.5 2.0 03/23/21 15:45 Pulse Ox 96 O2 Delivery Nasal Cannula O2 Flow Rate 2.5 Intake and Output 03/22/21 03/22/21 03/23/21 15:00 23:00 07:00 Intake Total 970 ml 320 ml 300 ml Output Total 900 ml Balance 970 ml 320 ml -600 ml Justicifation of Admission Dx: Justifications for Admission: Justification of Admission Dx: Yes Acute COPD Exacerbation: Acute COPD Exacerbation ASTRID BROOKS MD Mar 23, 2021 17:23
[2021-03-23 19:18] VITALS: BP 117/65
[2021-03-23] MEDS: ATORVASTATIN CALCIUM 40 MG TABLET. PO SCH (20:45)
[2021-03-23 23:15] VITALS: BP 117/66
[2021-03-24 02:38] VITALS: BP 132/77
[2021-03-24] MEDS: methylPREDNISolone SOD SUCC PF 40 MG/ML VIAL. IV SCH ×2 (05:35→20:47)
[2021-03-24 06:28] VITALS: BP 136/79
--- NOTE | 2021-03-24 07:45 | PDOC ---
PULMONARY PROGRESS NOTES DATE: 03/24/21 TIME: 07:43 Subjective on 02 sob better has cough on home 02 2lpm Vitals Vital Signs Date Time Temp Pulse Resp B/P (MAP) Pulse Ox O2 Delivery O2 Flow Rate FiO2 03/24/21 06:28 97.7 68 18 136/79 (98) 95 Nasal Cannula 2.0 97.7 ROS: No Nausea General: Alert Lungs: Crackles Cardiovascular: S1, S2 Abdomen: Soft Neuro Exam: Alert Extremities: Other Skin: Warm Medications Active Scripts Medications Dose Route/Sig Max Daily Dose Days Date Category [Vitamin D] 50,000 Units PO WEEKLY 03/21/21 Reported Omeprazole 40 Mg Capsule.dr 1 Cap PO DAILY 03/21/21 Reported Diclofenac Sodium 75 Mg Tablet.dr 1 Tab PO BID 03/21/21 Reported Nitrostat (Nitroglycerin) 0.4 Mg Tab.subl 0.4 Mg SL PRN Q5MIN PRN 03/21/21 Reported [place] 3-6-9 1,200 mg Softgel (Fish Oil/Borage/Flax/Om3,6,9#1) 1,200 Mg Capsule 1 Cap PO BID 30 02/20/20 Reported Calcium 600 + Vit D3 800 Tab (Calcium Carbonate/Vitamin D3) 1 Each Tablet 1 Tab PO DAILY 30 02/20/20 Reported Centrum Silver Tablet (Multivits-Min/Fa/Lycopene/Lut) 1 Each Tablet 1 Each PO DAILY 02/20/20 Reported Symbicort 160-4.5 Mcg Inhaler (Budesonide/Formoterol Fumarate) 10.2 Gm Hfa.aer.ad 2 Puff IH BID 02/20/20 Reported Proair Hfa Inhaler (Albuterol Sulfate) 8.5 Gm Hfa.aer.ad 2 Puff IH PRN Q4-6HRS PRN 21 02/20/20 Reported Flonase Allergy Relief (Fluticasone Propionate) 9.9 Ml [place].susp 2 Sprays NS DAILY 02/20/20 Reported Albuterol Sulfate Conc Neb Soln (Albuterol Sulfate) 2.5 Mg/0.5 Ml Vial.neb 1 Vial NEB Q6HRS 02/20/20 Reported Ipratropium [place] 0.2 Mg/1 Ml Solution 0.2 Mg IH PRN PRN 02/20/20 Reported Crestor (Rosuvastatin Calcium) 40 Mg Tablet 20 Mg PO HS 02/20/20 Reported Cyclobenzaprine Hcl 10 Mg Tablet 1 Tab PO TID 02/20/20 Reported Gabapentin 600 Mg Tablet 600 Mg PO TID 02/20/20 Reported Metoprolol Succinate ( Xl ) (Metoprolol Succinate) 25 Mg Tab.er.24h 1 Tab PO DAILY 02/20/20 Reported Impression . IMPRESSION: 1. Dyspnea with acute on chronic hypoxic respiratory failure secondary to viral pneumonia causing exacerbation of his chronic obstructive pulmonary disease. The patient's great granddaughter was diagnosed with RSV and he probably had the same virus. Initially, he had a fever up to 103. He is clinically improving. Clinically less likely superimposed bacterial pneumonia, but cannot be ruled out. 2. Underlying chronic obstructive pulmonary disease with chronic hypoxic respiratory failure on home oxygen at 2 liters. 3. Squamous cell carcinoma, involving right lung, stage T1b N0 M0 status post radiation with stable PET scan in September of this year. Plan . RECOMMENDATIONS: 1. 02 titration on 2 lpm is on home 02 2lpm. 2. Empiric antibiotics. 3. Bronchodilators. add ics to help cough 4. Lovenox for DVT prophylaxis. 5. change solumedrol to 40 q 12 hrs discussed w KRISH Navarro MD Mar 24, 2021 07:45
[2021-03-24] MEDS: ALBUTEROL SULFATE 2.5 MG/3 ML NEBU. NEB SCH ×4 (07:47→20:05)
[2021-03-24] MEDS: FLUTICASONE 50MCG/NASAL SPRAY 16GM BOTTLE. NS SCH (09:21)
[2021-03-24] MEDS: OMEGA-3 FATTY ACIDS/FISH OIL 1,000 MG CAPSULE. PO SCH ×2 (09:21→20:46)
[2021-03-24] MEDS: FLUTICASONE/VILANTEROL 200/25 INHALER. INH SCH (09:21)
[2021-03-24] MEDS: MULTIVITAMIN with MINERAL TABLET. PO SCH (09:21)
[2021-03-24] MEDS: CYCLOBENZAPRINE 10 MG TABLET. PO SCH ×3 (09:21→20:46)
[2021-03-24] MEDS: GABAPENTIN 300 MG CAPSULE. PO SCH ×3 (09:21→20:46)
[2021-03-24] MEDS: METOPROLOL SUCC 24HR ER 25 MG TAB.ER.24H. PO SCH (09:22)
[2021-03-24] MEDS: CALCIUM CARB/VIT D3 500/200 TABLET. PO SCH (09:22)
[2021-03-24] MEDS: DOXYCYCLINE HYCLATE 100 MG TABLET PO SCH ×2 (09:22→20:46)
[2021-03-24] MEDS: PANTOPRAZOLE 40 MG TABLET.DR. PO SCH (09:22)
[2021-03-24 11:00] VITALS: BP 107/64
[2021-03-24] MEDS: BUDESONIDE 0.5 MG/2 ML NEBU. NEB SCH ×2 (12:17→20:05)
[2021-03-24 14:53] VITALS: BP 116/77
[2021-03-24] MEDS: ENOXAPARIN 40 MG/0.4 ML SYRINGE. SQ SCH (15:05)
[2021-03-24] MEDS: cefTRIAXone IV Push 1 GM VIAL. IVP SCH (15:21)
[2021-03-24] MEDS: guaiFENesin DM 200MG/20MG 10 ML SYRUP PO PRN (16:17)
[2021-03-24] MEDS: FAMOTIDINE 20 MG/2 ML VIAL IVP SCH ×2 (16:23→20:46)
--- NOTE | 2021-03-24 17:23 | PDOC ---
PROGRESS NOTES Date of Service: DATE: 03/24/21 TIME: 174 Chief Complaint Chief Complaint Acute on chronic hypoxic respiratory failure - COPD exacerbation . Steroids, breathing treatments. abx Shortness of breath acute on chronic hypoxic respiratory failure Weakness and debility Ascending aortic aneurysm - stable Severe COPD on home O2 - i H/o Squamous cell carcinoma moderately differentiated d Plan: Continue current supportive measures Follow recommendations from pulmonology Encourage ambulation Continue with physical therapy Reassess in the a.m. Further recommendations based on the clinical course History of Present Illness History of Present Illness up to chiar, eating HR 110 at rest, cont above, pt and ot, very weak, cannot walk more than about 15 feet 03/23/2021 No acute events reported overnight, case discussed with nursing staff patient in no acute distress no complaints during my visit Vitals Vitals Vital Signs Date Time Temp Pulse Resp B/P (MAP) Pulse Ox O2 Delivery O2 Flow Rate FiO2 03/24/21 15:34 97 Nasal Cannula 2.0 03/24/21 14:53 98.1 85 19 116/77 (90) 98.1 Physical Exam General: Alert, Oriented X3, Cooperative, mild distress Lungs: Crackles Abdomen: Normal bowel sounds, Soft, No tenderness, No hepatosplenomegaly, No masses Extremities: No clubbing, No cyanosis, No edema, Normal pulses, No tenderness/swelling Skin: No rashes, No breakdown, No significant lesion Review of Systems Review of Systems Review of systems pertinent as per HPI otherwise 14 point review of system is negative Comment Review of Relevant I have reviewed the following items cathi (where applicable) has been applied. Labs Microbiology 03/21/21 Blood Culture - Preliminary, Resulted NO GROWTH AFTER 3 DAYS Medications Current Medications Methylprednisolone Sodium Succinate (SOLU-Medrol 40MG VIAL) 80 mg Q8HRS IV Last administered on 03/23/21at 06:02; Start 03/21/21 at 11:45; Stop 03/23/21 at 15:21; Status DC Acetaminophen (Tylenol) 650 mg PRN Q6HRS PRN PO MILD PAIN / TEMP > 100.3'F; Start 03/21/21 at 11:45 Ondansetron HCl (Zofran) 4 mg PRN Q4HRS PRN IVP NAUSEA/VOMITING; Start 03/21/21 at 11:45 Guaifenesin (Robitussin Dm) 10 ml PRN Q6HRS PRN PO COUGH Last administered on 03/24/21 16:17; Start 03/21/21 at 11:45 Cyclobenzaprine HCl (Flexeril) 10 mg TID PO Last administered on 03/24/21at 15:05; Start 03/21/21 at 14:00 Metoprolol Succinate (Toprol Xl) 25 mg DAILY PO Last administered on 03/24/21 09:22; Start 03/21/21 at 13:00 Nitroglycerin (Nitrostat) 0.4 mg PRN Q5MIN PRN SL CHEST PAIN; Start 03/21/21 at 12:15 Calcium/Vitamin D (Oscal D 500mg/ 200uts) 1 tab DAILY PO Last administered on 03/24/21 09:22; Start 03/22/21 at 09:00 Fish Oil (Fish Oil) 1,000 mg BID PO Last administered on 03/24/21 09:21; Start 03/21/21 at 21:00 Fluticasone Propionate (Flonase) 2 spray DAILY NS Last administered on 03/24/21 09:21; Start 03/21/21 at 13:00 Gabapentin (Neurontin) 600 mg TID PO Last administered on 03/24/21 15:05; Start 03/21/21 at 14:00 Multivitamins (Thera M Plus) 1 tab DAILY PO Last administered on 03/24/21 09:21; Start 03/21/21 at 13:00 Pantoprazole Sodium (Protonix) 40 mg DAILYAC PO Last administered on 03/24/21 09:22; Start 03/21/21 at 12:30 Atorvastatin Calcium (Lipitor) 80 mg QHS PO Last administered on 03/23/21at 20:45; Start 03/21/21 at 21:00 Ceftriaxone Sodium (Rocephin) 1 gm Q24H IVP Last administered on 03/24/21 15:21; Start 03/21/21 at 14:00 Doxycycline Hyclate (Vibra-Tab) 100 mg BID PO Last administered on 03/24/21 09:22; Start 03/21/21 at 14:00 Magnesium Hydroxide (Milk Of Magnesia) 2,400 mg PRN Q12HR PRN PO CONSTIPATION; Start 03/21/21 at 12:15 Enoxaparin Sodium (Lovenox 40mg Syringe) 40 mg Q24H SQ Last administered on 03/24/21at 15:05; Start 03/21/21 at 13:00 Fluticasone/ Vilanterol (Breo Ellipta 200-25 Mcg) 1 puff DAILY INH Last administered on 03/24/21at 09:21; Start 03/21/21 at 13:00; Stop 03/24/21 at 14:03; Status DC Albuterol Sulfate (Ventolin Hfa) 2 puff PRN Q4HRS PRN INH SHORTNESS OF BREATH Last administered on 03/24/21at 09:24; Start 03/21/21 at 12:30 Magnesium Sulfate 50 ml @ 25 mls/hr 1X ONCE IV Last administered on 03/21/21at 14:53; Start 03/21/21 at 14:30; Stop 03/21/21 at 16:29; Status DC Albuterol Sulfate (Ventolin Neb Soln) 2.5 mg RTQID NEB Last administered on 03/24/21at 15:34; Start 03/22/21 at 12:00 Methylprednisolone Sodium Succinate (SOLU-Medrol 40MG VIAL) 40 mg Q8HRS IV Last administered on 03/24/21at 05:35; Start 03/23/21 at 22:00; Stop 03/24/21 at 07:46; Status DC Methylprednisolone Sodium Succinate (SOLU-Medrol 40MG VIAL) 40 mg Q12HR IV ; Start 03/24/21 at 21:00 Budesonide (Pulmicort) 0.5 mg RTBID NEB Last administered on 03/24/21at 12:17; Start 03/24/21 at 08:00 Famotidine (Pepcid Vial) 20 mg BID IVP Last administered on 03/24/21at 16:23; Start 03/24/21 at 15:45 Active Scripts Active Reported [Vitamin D] 50,000 Units PO WEEKLY Omeprazole 40 Mg Capsule. 1 Cap PO DAILY Diclofenac Sodium 75 Mg Tablet.dr 1 Tab PO BID Nitrostat (Nitroglycerin) 0.4 Mg Tab.subl 0.4 Mg SL PRN Q5MIN PRN [place] 3-6-9 1,200 mg Softgel (Fish Oil/Borage/Flax/Om3,6,9#1) 1,200 Mg Capsule 1 Cap PO BID 30 Days Calcium 600 + Vit D3 800 Tab (Calcium Carbonate/Vitamin D3) 1 Each Tablet 1 Tab PO DAILY 30 Days Centrum Silver Tablet (Multivits-Min/Fa/Lycopene/Lut) 1 Each Tablet 1 Each PO DAILY Symbicort 160-4.5 Mcg Inhaler (Budesonide/Formoterol Fumarate) 10.2 Gm Hfa.aer.ad 2 Puff IH BID Proair Hfa Inhaler (Albuterol Sulfate) 8.5 Gm Hfa.aer.ad 2 Puff IH PRN Q4-6HRS PRN 21 Days Flonase Allergy Relief (Fluticasone Propionate) 9.9 Ml [place].susp 2 Sprays NS DAILY Albuterol Sulfate Conc Neb Soln (Albuterol Sulfate) 2.5 Mg/0.5 Ml Vial.neb 1 Vial NEB Q6HRS Ipratropium [place] 0.2 Mg/1 Ml Solution 0.2 Mg IH PRN PRN Crestor (Rosuvastatin Calcium) 40 Mg Tablet 20 Mg PO HS Cyclobenzaprine Hcl 10 Mg Tablet 1 Tab PO TID Gabapentin 600 Mg Tablet 600 Mg PO TID Metoprolol Succinate ( Xl ) (Metoprolol Succinate) 25 Mg Tab.er.24h 1 Tab PO DAILY Vitals/I & O Vital Sign - Last 24 Hours 03/23/21 03/23/21 03/23/21 03/23/21 19:18 20:00 20:28 23:15 Temp 97.3 98.7 97.3 98.7 Pulse 79 86 Resp 16 18 B/P (MAP) 117/65 (82) 117/66 (83) Pulse Ox 94 96 100 O2 Delivery Nasal Cannula Nasal Cannula Nasal Cannula Nasal Cannula O2 Flow Rate 2.0 2.5 2.5 2.0 03/24/21 03/24/21 03/24/21 03/24/21 02:38 06:28 07:47 08:00 Temp 98.9 97.7 98.9 97.7 Pulse 72 68 Resp 16 18 B/P (MAP) 132/77 (95) 136/79 (98) Pulse Ox 95 95 96 O2 Delivery Nasal Cannula Nasal Cannula Nasal Cannula Nasal Cannula O2 Flow Rate 2.0 2.0 2.0 2.0 03/24/21 03/24/21 03/24/21 03/24/21 09:22 11:00 12:18 12:18 Temp 98.4 98.4 Pulse 94 82 Resp 19 B/P (MAP) 136/79 107/64 (78) Pulse Ox 94 96 96 O2 Delivery Nasal Cannula Nasal Cannula Nasal Cannula O2 Flow Rate 2.0 2.0 2.0 03/24/21 03/24/21 14:53 15:34 Temp 98.1 98.1 Pulse 85 Resp 19 B/P (MAP) 116/77 (90) Pulse Ox 97 97 O2 Delivery Nasal Cannula Nasal Cannula O2 Flow Rate 2.0 2.0 Intake and Output 03/23/21 03/23/21 03/24/21 15:00 23:00 07:00 Intake Total 810 ml 0 ml Output Total 150 ml 600 ml Balance -150 ml 210 ml 0 ml Justicifation of Admission Dx: Justifications for Admission: Justification of Admission Dx: Yes Acute COPD Exacerbation: Acute COPD Exacerbation ASTRID BROOKS MD Mar 24, 2021 17:23
[2021-03-24 19:05] VITALS: BP 99/64
[2021-03-24] MEDS: ATORVASTATIN CALCIUM 40 MG TABLET. PO SCH (20:46)
[2021-03-24 23:12] VITALS: BP 111/62
[2021-03-25 02:39] VITALS: BP 120/67
[2021-03-25 07:00] VITALS: BP 117/69
[2021-03-25] MEDS: BUDESONIDE 0.5 MG/2 ML NEBU. NEB SCH ×2 (07:18→20:13)
[2021-03-25] MEDS: ALBUTEROL SULFATE 2.5 MG/3 ML NEBU. NEB SCH ×4 (07:18→20:13)
[2021-03-25] MEDS: FAMOTIDINE 20 MG/2 ML VIAL IVP SCH ×2 (08:43→21:25)
[2021-03-25] MEDS: DOXYCYCLINE HYCLATE 100 MG TABLET PO SCH ×2 (08:44→21:25)
[2021-03-25] MEDS: CYCLOBENZAPRINE 10 MG TABLET. PO SCH ×3 (08:44→21:25)
[2021-03-25] MEDS: MULTIVITAMIN with MINERAL TABLET. PO SCH (08:44)
[2021-03-25] MEDS: methylPREDNISolone SOD SUCC PF 40 MG/ML VIAL. IV SCH ×2 (08:44→21:25)
[2021-03-25] MEDS: GABAPENTIN 300 MG CAPSULE. PO SCH ×3 (08:45→21:25)
[2021-03-25] MEDS: METOPROLOL SUCC 24HR ER 25 MG TAB.ER.24H. PO SCH (08:45)
[2021-03-25] MEDS: OMEGA-3 FATTY ACIDS/FISH OIL 1,000 MG CAPSULE. PO SCH ×2 (08:45→21:25)
[2021-03-25] MEDS: PANTOPRAZOLE 40 MG TABLET.DR. PO SCH (08:45)
[2021-03-25] MEDS: FLUTICASONE 50MCG/NASAL SPRAY 16GM BOTTLE. NS SCH (08:47)
[2021-03-25] MEDS: CALCIUM CARB/VIT D3 500/200 TABLET. PO SCH (09:00)
[2021-03-25 11:00] VITALS: BP 125/70
--- NOTE | 2021-03-25 13:05 | PDOC ---
PULMONARY PROGRESS NOTES DATE: 03/25/21 TIME: 13:03 Subjective Patient feels better less short of air. Less wheezing. Still weak wobbly on his feet Vitals Vital Signs Date Time Temp Pulse Resp B/P (MAP) Pulse Ox O2 Delivery O2 Flow Rate FiO2 03/25/21 12:02 95 Nasal Cannula 2.0 03/25/21 11:00 97.9 73 18 125/70 (88) 97.9 ROS: No Nausea, No Chest Pain, No Abdominal Pain, No Increase Cough General: Alert Lungs: Crackles Cardiovascular: S1, S2 Abdomen: Soft Neuro Exam: Alert Extremities: Other Skin: Warm Medications Active Scripts Medications Dose Route/Sig Max Daily Dose Days Date Category [Vitamin D] 50,000 Units PO WEEKLY 03/21/21 Reported Omeprazole 40 Mg Capsule.dr 1 Cap PO DAILY 03/21/21 Reported Diclofenac Sodium 75 Mg Tablet.dr 1 Tab PO BID 03/21/21 Reported Nitrostat (Nitroglycerin) 0.4 Mg Tab.subl 0.4 Mg SL PRN Q5MIN PRN 03/21/21 Reported [place] 3-6-9 1,200 mg Softgel (Fish Oil/Borage/Flax/Om3,6,9#1) 1,200 Mg Capsule 1 Cap PO BID 30 02/20/20 Reported Calcium 600 + Vit D3 800 Tab (Calcium Carbonate/Vitamin D3) 1 Each Tablet 1 Tab PO DAILY 30 02/20/20 Reported Centrum Silver Tablet (Multivits-Min/Fa/Lycopene/Lut) 1 Each Tablet 1 Each PO DAILY 02/20/20 Reported Symbicort 160-4.5 Mcg Inhaler (Budesonide/Formoterol Fumarate) 10.2 Gm Hfa.aer.ad 2 Puff IH BID 02/20/20 Reported Proair Hfa Inhaler (Albuterol Sulfate) 8.5 Gm Hfa.aer.ad 2 Puff IH PRN Q4-6HRS PRN 21 02/20/20 Reported Flonase Allergy Relief (Fluticasone Propionate) 9.9 Ml [place].susp 2 Sprays NS DAILY 02/20/20 Reported Albuterol Sulfate Conc Neb Soln (Albuterol Sulfate) 2.5 Mg/0.5 Ml Vial.neb 1 Vial NEB Q6HRS 02/20/20 Reported Ipratropium [place] 0.2 Mg/1 Ml Solution 0.2 Mg IH PRN PRN 02/20/20 Reported Crestor (Rosuvastatin Calcium) 40 Mg Tablet 20 Mg PO HS 02/20/20 Reported Cyclobenzaprine Hcl 10 Mg Tablet 1 Tab PO TID 02/20/20 Reported Gabapentin 600 Mg Tablet 600 Mg PO TID 02/20/20 Reported Metoprolol Succinate ( Xl ) (Metoprolol Succinate) 25 Mg Tab.er.24h 1 Tab PO DAILY 02/20/20 Reported Impression . IMPRESSION: 1. Acute exacerbation of COPD, possible RSV 2. Acute on chronic respiratory failure 3. Squamous cell carcinoma, involving right lung, stage T1b N0 M0 status post radiation with stable PET scan in September of this year. 4. Generalized weakness and debility secondary to above 5. History of asthma related to work environment Plan . Updated 03/25 Up to chair Patient slowly improving continue current support We will ask PT to evaluate RECOMMENDATIONS: 1. 02 titration on 2 lpm is on home 02 2lpm. 2. Empiric antibiotics. 3. Bronchodilators. add ics to help cough 4. Lovenox for DVT prophylaxis. 5. change solumedrol to 40 q 12 hrs discussed w pt KORIN LEON MD Mar 25, 2021 13:05
--- NOTE | 2021-03-25 13:13 | PDOC ---
[facility] PROGRESS NOTE Date of Service DOS: DATE: 03/25/21 TIME: 13:12 Chief Complaint Chief Complaint Acute on chronic hypoxic respiratory failure - COPD exacerbation . Steroids, breathing treatments. abx Shortness of breath acute on chronic hypoxic respiratory failure Weakness and debility Ascending aortic aneurysm - stable Severe COPD on home O2 - i H/o Squamous cell carcinoma moderately differentiated d Plan: Continue current supportive measures Follow recommendations from pulmonology Encourage ambulation Continue with physical therapy Reassess in the a.m. Further recommendations based on the clinical course History of Present Illness History of Present Illness 03/25/2021 Patient seen and examined Discussed with RN Chart reviewed He is currently on O2 per nasal cannula Getting antibiotics and steroids up to chiar, eating HR 110 at rest, cont above, pt and ot, very weak, cannot walk more than about 15 feet 03/23/2021 No acute events reported overnight, case discussed with nursing staff patient in no acute distress no complaints during my visit Vitals/I&O Vitals/I&O: Vital Signs Date Time Temp Pulse Resp B/P (MAP) Pulse Ox O2 Delivery O2 Flow Rate FiO2 03/25/21 12:02 95 Nasal Cannula 2.0 03/25/21 11:00 97.9 73 18 125/70 (88) 97.9 I & O 03/24/21 03/24/21 03/25/21 15:00 23:00 07:00 Intake Total 480 ml 480 ml 0 ml Output Total 400 ml 550 ml Balance 80 ml -70 ml 0 ml Physical Exam General: Alert, Oriented X3, Cooperative, mild distress Lungs: Crackles Abdomen: Normal bowel sounds, Soft, No tenderness, No hepatosplenomegaly, No masses Extremities: No clubbing, No cyanosis, No edema, Normal pulses, No tenderness/swelling Skin: No rashes, No breakdown, No significant lesion Assessment and Plan Assessmemt and Plan Acute on chronic hypoxic respiratory failure - COPD exacerbation . Steroids, breathing treatments. 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 Further recommendations based on the clinical course Antibiotics Steroids O2 per nasal cannula Long-term prognosis guarded Appreciate subspecialist input Comment Review of Relevant I have reviewed the following items cathi (where applicable) has been applied. Medications: Current Medications Medications (Trade) Dose Ordered Sig/Ina Route PRN Reason Start Time Stop Time Status Last Admin Dose Admin Methylprednisolone Sodium Succinate (SOLU-Medrol 40MG VIAL) 40 mg Q12HR IV 03/24/21 21:00 03/25/21 08:44 Famotidine (Pepcid Vial) 20 mg BID IVP 03/24/21 15:45 03/25/21 08:43 Justifications for Admission General Conditions Poss tachycardia?: Yes Justification for admission: Patient has tachycardia (> 100 beats per minute) which is not readily corrected by appropriate treatment within 12 to 24 hours. Other Justification CORY JAIME III DO Mar 25, 2021 13:13
[2021-03-25] MEDS: ENOXAPARIN 40 MG/0.4 ML SYRINGE. SQ SCH (14:18)
[2021-03-25] MEDS: cefTRIAXone IV Push 1 GM VIAL. IVP SCH (14:21)
[2021-03-25 14:36] VITALS: BP 126/74
[2021-03-25 19:20] VITALS: BP 126/77
[2021-03-25] MEDS: ATORVASTATIN CALCIUM 40 MG TABLET. PO SCH (21:25)
[2021-03-25 22:45] VITALS: BP 127/74
[2021-03-26 02:45] VITALS: BP 120/83
[2021-03-26 07:00] VITALS: BP 123/83
[2021-03-26] MEDS: BUDESONIDE 0.5 MG/2 ML NEBU. NEB SCH ×2 (07:15→19:53)
[2021-03-26] MEDS: ALBUTEROL SULFATE 2.5 MG/3 ML NEBU. NEB SCH ×4 (07:15→19:53)
--- NOTE | 2021-03-26 08:32 | PDOC ---
PULMONARY PROGRESS NOTES DATE: 03/26/21 TIME: 08:32 Subjective Patient started to feel better today he thinks he is getting stronger cough is better less wheeze Vitals Vital Signs Date Time Temp Pulse Resp B/P (MAP) Pulse Ox O2 Delivery O2 Flow Rate FiO2 03/26/21 07:16 96 Nasal Cannula 2.0 03/26/21 02:45 97.8 78 20 120/83 (95) 97.8 ROS: No Nausea, No Chest Pain, No Abdominal Pain, No Increase Cough General: Alert Lungs: Crackles Cardiovascular: S1, S2 Abdomen: Soft Neuro Exam: Alert Extremities: Other Skin: Warm Medications Active Scripts Medications Dose Route/Sig Max Daily Dose Days Date Category [Vitamin D] 50,000 Units PO WEEKLY 03/21/21 Reported Omeprazole 40 Mg Capsule.dr 1 Cap PO DAILY 03/21/21 Reported Diclofenac Sodium 75 Mg Tablet.dr 1 Tab PO BID 03/21/21 Reported Nitrostat (Nitroglycerin) 0.4 Mg Tab.subl 0.4 Mg SL PRN Q5MIN PRN 03/21/21 Reported [place] 3-6-9 1,200 mg Softgel (Fish Oil/Borage/Flax/Om3,6,9#1) 1,200 Mg Capsule 1 Cap PO BID 30 02/20/20 Reported Calcium 600 + Vit D3 800 Tab (Calcium Carbonate/Vitamin D3) 1 Each Tablet 1 Tab PO DAILY 30 02/20/20 Reported Centrum Silver Tablet (Multivits-Min/Fa/Lycopene/Lut) 1 Each Tablet 1 Each PO DAILY 02/20/20 Reported Symbicort 160-4.5 Mcg Inhaler (Budesonide/Formoterol Fumarate) 10.2 Gm Hfa.aer.ad 2 Puff IH BID 02/20/20 Reported Proair Hfa Inhaler (Albuterol Sulfate) 8.5 Gm Hfa.aer.ad 2 Puff IH PRN Q4-6HRS PRN 21 02/20/20 Reported Flonase Allergy Relief (Fluticasone Propionate) 9.9 Ml [place].susp 2 Sprays NS DAILY 02/20/20 Reported Albuterol Sulfate Conc Neb Soln (Albuterol Sulfate) 2.5 Mg/0.5 Ml Vial.neb 1 Vial NEB Q6HRS 02/20/20 Reported Ipratropium [place] 0.2 Mg/1 Ml Solution 0.2 Mg IH PRN PRN 02/20/20 Reported Crestor (Rosuvastatin Calcium) 40 Mg Tablet 20 Mg PO HS 02/20/20 Reported Cyclobenzaprine Hcl 10 Mg Tablet 1 Tab PO TID 02/20/20 Reported Gabapentin 600 Mg Tablet 600 Mg PO TID 02/20/20 Reported Metoprolol Succinate ( Xl ) (Metoprolol Succinate) 25 Mg Tab.er.24h 1 Tab PO DAILY 02/20/20 Reported Impression . IMPRESSION: 1. Acute exacerbation of COPD, possible RSV 2. Acute on chronic respiratory failure 3. Squamous cell carcinoma, involving right lung, stage T1b N0 M0 status post radiation with stable PET scan in September of this year. 4. Generalized weakness and debility secondary to above 5. History of asthma related to work environment Plan . Updated 03/26 Patient improving Discharge home in the a.m. Follow-up with me in 2 weeks Updated 03/25 Up to chair Patient slowly improving continue current support We will ask PT to evaluate KORIN LEON MD Mar 26, 2021 08:32
[2021-03-26] MEDS: FLUTICASONE 50MCG/NASAL SPRAY 16GM BOTTLE. NS SCH (09:00)
[2021-03-26] MEDS: MULTIVITAMIN with MINERAL TABLET. PO SCH (09:03)
[2021-03-26] MEDS: OMEGA-3 FATTY ACIDS/FISH OIL 1,000 MG CAPSULE. PO SCH ×2 (09:03→19:57)
[2021-03-26] MEDS: METOPROLOL SUCC 24HR ER 25 MG TAB.ER.24H. PO SCH (09:03)
[2021-03-26] MEDS: GABAPENTIN 300 MG CAPSULE. PO SCH ×3 (09:03→19:57)
[2021-03-26] MEDS: FAMOTIDINE 20 MG/2 ML VIAL IVP SCH ×2 (09:04→19:57)
[2021-03-26] MEDS: CYCLOBENZAPRINE 10 MG TABLET. PO SCH ×3 (09:04→19:57)
[2021-03-26] MEDS: PANTOPRAZOLE 40 MG TABLET.DR. PO SCH (09:04)
[2021-03-26] MEDS: DOXYCYCLINE HYCLATE 100 MG TABLET PO SCH ×2 (09:04→19:57)
[2021-03-26] MEDS: CALCIUM CARB/VIT D3 500/200 TABLET. PO SCH (09:04)
[2021-03-26] MEDS: methylPREDNISolone SOD SUCC PF 40 MG/ML VIAL. IV SCH ×2 (09:05→19:57)
[2021-03-26 11:00] VITALS: BP 131/81
--- NOTE | 2021-03-26 12:40 | PDOC ---
[facility] PROGRESS NOTE Date of Service DOS: DATE: 03/26/21 TIME: 12:36 Chief Complaint Chief Complaint Acute on chronic hypoxic respiratory failure - COPD exacerbation . Steroids, breathing treatments. abx Shortness of breath acute on chronic hypoxic respiratory failure Weakness and debility Ascending aortic aneurysm - stable Severe COPD on home O2 - i H/o Squamous cell carcinoma moderately differentiated d Plan: Continue current supportive measures Follow recommendations from pulmonology Encourage ambulation Continue with physical therapy Reassess in the a.m. Further recommendations based on the clinical course History of Present Illness History of Present Illness 03/26/2021 Patient seen and examined Discussed with RN Chart reviewed He is currently on 2 L O2 per nasal cannula Getting antibiotics and steroids Walked around the floor x2 prior to our exam. Feeling much better today but still slightly weak Vitals/I&O Vitals/I&O: Vital Signs Date Time Temp Pulse Resp B/P (MAP) Pulse Ox O2 Delivery O2 Flow Rate FiO2 03/26/21 11:18 Nasal Cannula 2.0 03/26/21 11:00 97.9 100 18 131/81 (98) 96 97.9 I & O 03/25/21 03/25/21 03/26/21 15:00 23:00 07:00 Intake Total 530 ml 310 ml 420 ml Output Total 650 ml 650 ml 250 ml Balance -120 ml -340 ml 170 ml Physical Exam General: Alert, Oriented X3, Cooperative, No acute distress Lungs: Crackles Abdomen: Normal bowel sounds, Soft, No tenderness, No hepatosplenomegaly, No masses Extremities: No clubbing, No cyanosis, No edema, Normal pulses, No tenderness/swelling Skin: No rashes, No breakdown, No significant lesion Assessment and Plan Assessmemt and Plan Acute on chronic hypoxic respiratory failure - COPD exacerbation . Steroids, breathing treatments. 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 Justifications for Admission General Conditions Poss tachycardia?: Yes Justification for admission: Patient has tachycardia (> 100 beats per minute) which is not readily corrected by appropriate treatment within 12 to 24 hours. Other Justification CORY JAIME III DO Mar 26, 2021 12:40
--- NOTE | 2021-03-26 14:11 | NUR ---
SS following up with discharge planning. SS reviewed pt chart and discussed with pt RN. Pt is from home with spouse and is currently requiring oxygen at two liters nasal canula. Pt has home oxygen. COVID19 negative. Pt on IV Solu-Medrol and IV Rocephin. PT/OT ordered. PT recommended home with home healthcare. Pt declining home healthcare at this time. SS will continue to follow for discharge planning.
[2021-03-26] MEDS: ENOXAPARIN 40 MG/0.4 ML SYRINGE. SQ SCH (14:13)
[2021-03-26] MEDS: cefTRIAXone IV Push 1 GM VIAL. IVP SCH (14:14)
[2021-03-26 15:00] VITALS: BP 123/73
[2021-03-26 19:40] VITALS: BP 115/79
[2021-03-26] MEDS: ATORVASTATIN CALCIUM 40 MG TABLET. PO SCH (19:57)
[2021-03-26] MEDS: guaiFENesin DM 200MG/20MG 10 ML SYRUP PO PRN (20:03)
[2021-03-26 23:10] VITALS: BP 135/75
[2021-03-27 03:15] VITALS: BP 123/78
[2021-03-27 07:00] VITALS: BP 118/79
--- NOTE | 2021-03-27 07:42 | PDOC ---
[facility] PROGRESS NOTE Date of Service DOS: DATE: 03/27/21 TIME: 07:40 Chief Complaint Chief Complaint Acute on chronic hypoxic respiratory failure - COPD exacerbation . Steroids, breathing treatments. abx Shortness of breath acute on chronic hypoxic respiratory failure Weakness and debility Ascending aortic aneurysm - stable Severe COPD on home O2 - i H/o Squamous cell carcinoma moderately differentiated d Plan: Continue current supportive measures Follow recommendations from pulmonology Encourage ambulation Continue with physical therapy Reassess in the a.m. Further recommendations based on the clinical course History of Present Illness History of Present Illness 03/27/2021 Patient seen and examined Discussed with RN Chart reviewed Tapering down steroids. Sating well on 2L nasal cannula Feeling great today and would like to go home. Vitals/I&O Vitals/I&O: Vital Signs Date Time Temp Pulse Resp B/P (MAP) Pulse Ox O2 Delivery O2 Flow Rate FiO2 03/27/21 03:15 98.3 84 20 123/78 (93) 94 Nasal Cannula 2.0 98.3 I & O 03/26/21 03/26/21 03/27/21 15:00 23:00 07:00 Intake Total 720 ml 380 ml 200 ml Output Total 350 ml 525 ml Balance 720 ml 30 ml -325 ml Physical Exam General: Alert, Oriented X3, Cooperative, No acute distress Lungs: Crackles Abdomen: Normal bowel sounds, Soft, No tenderness, No hepatosplenomegaly, No masses Extremities: No clubbing, No cyanosis, No edema, Normal pulses, No tenderness/swelling Skin: No rashes, No breakdown, No significant lesion Assessment and Plan Assessmemt and Plan Assessmemt and Plan Acute on chronic hypoxic respiratory failure - COPD exacerbation . Steroids, breathing treatments. 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 Justifications for Admission General Conditions Poss tachycardia?: Yes Justification for admission: Patient has tachycardia (> 100 beats per minute) which is not readily corrected by appropriate treatment within 12 to 24 hours. Other Justification CORY JAIME III DO Mar 27, 2021 07:42
[2021-03-27] MEDS: ALBUTEROL SULFATE 2.5 MG/3 ML NEBU. NEB SCH ×2 (07:48→11:34)
[2021-03-27] MEDS: BUDESONIDE 0.5 MG/2 ML NEBU. NEB SCH (07:49)
[2021-03-27] MEDS: CALCIUM CARB/VIT D3 500/200 TABLET. PO SCH (08:27)
[2021-03-27] MEDS: PANTOPRAZOLE 40 MG TABLET.DR. PO SCH (08:27)
[2021-03-27] MEDS: GABAPENTIN 300 MG CAPSULE. PO SCH ×2 (08:27→14:54)
[2021-03-27] MEDS: MULTIVITAMIN with MINERAL TABLET. PO SCH (08:27)
[2021-03-27] MEDS: CYCLOBENZAPRINE 10 MG TABLET. PO SCH ×2 (08:27→14:54)
[2021-03-27] MEDS: DOXYCYCLINE HYCLATE 100 MG TABLET PO SCH (08:27)
[2021-03-27] MEDS: OMEGA-3 FATTY ACIDS/FISH OIL 1,000 MG CAPSULE. PO SCH (08:28)
[2021-03-27] MEDS: methylPREDNISolone SOD SUCC PF 40 MG/ML VIAL. IV SCH (08:28)
[2021-03-27] MEDS: METOPROLOL SUCC 24HR ER 25 MG TAB.ER.24H. PO SCH (08:28)
[2021-03-27] MEDS: FAMOTIDINE 20 MG/2 ML VIAL IVP SCH (08:28)
[2021-03-27] MEDS: FLUTICASONE 50MCG/NASAL SPRAY 16GM BOTTLE. NS SCH (08:28)
[2021-03-27] MEDS ORDERED: CEFDINIR 300 MG CAPSULE PO SCH (09:00)
--- NOTE | 2021-03-27 09:25 | PDOC ---
PULMONARY PROGRESS NOTES DATE: 03/27/21 TIME: 09:25 Subjective Patient started to feel better today he thinks he is getting stronger cough is better less wheeze Vitals Vital Signs Date Time Temp Pulse Resp B/P (MAP) Pulse Ox O2 Delivery O2 Flow Rate FiO2 03/27/21 08:28 84 123/78 03/27/21 07:49 94 Nasal Cannula 2.0 03/27/21 07:00 98.5 20 98.5 ROS: No Nausea, No Chest Pain, No Abdominal Pain, No Increase Cough General: Alert Lungs: Crackles Cardiovascular: S1, S2 Abdomen: Soft Neuro Exam: Alert Extremities: Other Skin: Warm Medications Active Scripts Medications Dose Route/Sig Max Daily Dose Days Date Category [Vitamin D] 50,000 Units PO WEEKLY 03/21/21 Reported Omeprazole 40 Mg Capsule.dr 1 Cap PO DAILY 03/21/21 Reported Diclofenac Sodium 75 Mg Tablet.dr 1 Tab PO BID 03/21/21 Reported Nitrostat (Nitroglycerin) 0.4 Mg Tab.subl 0.4 Mg SL PRN Q5MIN PRN 03/21/21 Reported [place] 3-6-9 1,200 mg Softgel (Fish Oil/Borage/Flax/Om3,6,9#1) 1,200 Mg Capsule 1 Cap PO BID 30 02/20/20 Reported Calcium 600 + Vit D3 800 Tab (Calcium Carbonate/Vitamin D3) 1 Each Tablet 1 Tab PO DAILY 30 02/20/20 Reported Centrum Silver Tablet (Multivits-Min/Fa/Lycopene/Lut) 1 Each Tablet 1 Each PO DAILY 02/20/20 Reported Symbicort 160-4.5 Mcg Inhaler (Budesonide/Formoterol Fumarate) 10.2 Gm Hfa.aer.ad 2 Puff IH BID 02/20/20 Reported Proair Hfa Inhaler (Albuterol Sulfate) 8.5 Gm Hfa.aer.ad 2 Puff IH PRN Q4-6HRS PRN 21 02/20/20 Reported Flonase Allergy Relief (Fluticasone Propionate) 9.9 Ml [place].susp 2 Sprays NS DAILY 02/20/20 Reported Albuterol Sulfate Conc Neb Soln (Albuterol Sulfate) 2.5 Mg/0.5 Ml Vial.neb 1 Vial NEB Q6HRS 02/20/20 Reported Ipratropium [place] 0.2 Mg/1 Ml Solution 0.2 Mg IH PRN PRN 02/20/20 Reported Crestor (Rosuvastatin Calcium) 40 Mg Tablet 20 Mg PO HS 02/20/20 Reported Cyclobenzaprine Hcl 10 Mg Tablet 1 Tab PO TID 02/20/20 Reported Gabapentin 600 Mg Tablet 600 Mg PO TID 02/20/20 Reported Metoprolol Succinate ( Xl ) (Metoprolol Succinate) 25 Mg Tab.er.24h 1 Tab PO DAILY 02/20/20 Reported Impression . IMPRESSION: 1. Acute exacerbation of COPD, possible RSV 2. Acute on chronic respiratory failure 3. Squamous cell carcinoma, involving right lung, stage T1b N0 M0 status post radiation with stable PET scan in September of this year. 4. Generalized weakness and debility secondary to above 5. History of asthma related to work environment Plan . Updated 03/26 Patient improving Discharge home in the a.m. Follow-up with me in 2 weeks Updated 03/25 Up to chair Patient slowly improving continue current support We will ask PT to evaluate KORIN LEON MD Mar 27, 2021 09:25
[2021-03-27 11:00] VITALS: BP 127/62
[2021-03-27] MEDS: ENOXAPARIN 40 MG/0.4 ML SYRINGE. SQ SCH (13:00)
--- NOTE | 2021-03-27 14:00 | NUR ---
SS following up with discharge planning. SS reviewed pt chart and discussed with pt RN. Pt is currently requiring oxygen at two liters nasal canula. COVID19 negative. Pt has home oxygen and is at baseline. Pt on PO medications. Pt and family declining home healthcare at this time. Discharge plan is currently to home when medically ready for discharge. Anticipate discharge to home today. SS will continue to follow for discharge planning.
--- NOTE | 2021-03-27 15:25 | NUR ---
Discharge Note: JO ANN MENDES Discharge instructions and discharge home medications reviewed with Patient and a copy given. All questions have been answered and understanding verbalized. The following instructions and handouts were given: chest pain, COPD, COPD exacerbation IV discontinued, no complications Patient discharged to home with self care. All belongings taken home with patient.
--- NOTE | 2021-03-27 15:51 | DS ---
DATE OF DISCHARGE: 03/27/2021 ADMITTING DIAGNOSIS: Respiratory failure. DISCHARGE DIAGNOSES: Resolving respiratory failure, history of chronic obstructive pulmonary disease, history of squamous cell carcinoma involving the right lung, history of lead, thallium and cadmium exposure at work many years ago, history of abdominal aortic aneurysm (it is stable). HOSPITAL COURSE: The patient is a pleasant middle-aged male who presented with respiratory failure. He has multiple issues including COPD and chemical exposure. He was admitted. We gave him steroids, breathing treatments, oxygen, antibiotics. 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 Over the past few days, he has returned to his baseline. We discharged him to home. DISPOSITION: Home. ACTIVITY: As tolerated. DIET: Low sodium. MEDICATIONS: Albuterol, Symbicort, calcium, cyclobenzaprine 10 t.i.d., diclofenac 75 b.i.d., fish oil, Flonase, gabapentin 600 t.i.d., metoprolol 25 q.24 hours, multiple vitamins, p.r.n. nitroglycerin, omeprazole 20 a day and Crestor 20 a day. [facility] [place] DR: Idania TID: [id number]
== END 2021-03-27 15:00 | disposition home or self-care (01) | DRG 193 ==
LOC: 6 SOUTH 10:59
PROVIDERS: ADMIT Internal Medicine; ATTEND Internal Medicine
DX: J12.9 Viral pneumonia, unspecified (principal); J96.21 Acute and chronic respiratory failure with hypoxia; J44.1 Chronic obstructive pulmonary disease with (acute) exacerbation; J44.0 Chronic obstructive pulmonary disease with (acute) lower respiratory infection; I10 Essential (primary) hypertension; I71.2 Thoracic aortic aneurysm, without rupture; Z20.828 Contact with and (suspected) exposure to other viral communicable diseases; Z77.098 Contact with and (suspected) exposure to other hazardous, chiefly nonmedicinal, chemicals; Z82.49 Family history of ischemic heart disease and other diseases of the circulatory system; Z85.118 Personal history of other malignant neoplasm of bronchus and lung; Z86.79 Personal history of other diseases of the circulatory system; Z87.891 Personal history of nicotine dependence; Z92.3 Personal history of irradiation; Z96.642 Presence of left artificial hip joint; Z99.81 Dependence on supplemental oxygen
CPT/HCPCS: 36415; 71045; 80048; 80053; 81001; 83605; 83735; 83880; 84443; 85025; 85610; 87040; 87426; 87449; 87804; 93005; 94640; 94760; J0696; J1650; J2920; J3475; J3490; U0003; U0005; 97110-GP; 97112-GP; 97116-GP; 97530-GO; 97530-GP; 97535-GO; G0378; J7613; J7626

== ENCOUNTER → 2021-04-09 | Outpatient (CLI) | payer MEDICARE ==
[2021-03-27 11:00] VITALS: BP 127/62
[~2021-04-09] MED LIST changes: +DICL75TA PO; +NITR0.4T24 SL; +OMEP40CA7 PO; +VITAMIN D PO
--- NOTE | 2021-04-09 14:06 | RAD ---
CT chest without contrast dated 04/09/2021. COMPARISON: 04/20/2020. Clinical indication: Follow-up lung cancer. TECHNIQUE: Contiguous axial imaging of the chest performed without the administration of intravenous contrast. One or more of the following individualized dose reduction techniques were utilized for this examinat ion: 1. Automated exposure control 2. Adjustment of the mA and/or kV according to patient size 3. Use of iterative reconstruction technique. FINDINGS: Heart size is upper limits of normal. No pericardial effusion. Coronary artery calcifications. There is ectasia of the ascending thoracic aorta measuring 4.5 cm transverse. Coronary artery calcification s. No mediastinal, hilar or axillary lymphadenopathy. There are calcified right hilar lymph nodes. Th yroid gland unremarkable. Central airways are patent. Moderate emphysema. Previously described nodular focus in the posterior r ight lower lobe is less apparent on today's exam measuring about 6 mm versus 1.4 cm previously. There are adjacent fiducial markers. Linear bands of increased density in the region consistent with scarr ing or atelectasis. No new parenchymal nodule or mass. No pleural effusion. No pneumothorax. Limited images of the upper abdomen are unremarkable. No acute bony abnormality. Multilevel spondylos is. There are pleural calcifications on the left, unchanged. IMPRESSION: 1. Marked interval decrease in size of right lower lobe mass with fiducial markers in place. This is likely a positive response to radiation treatment. 2. There are linear opacities in the right lower lobe adjacent to the mass, likely scarring or atelec tasis. 3. Moderate emphysema. 4. Coronary artery calcifications and mild aneurysmal dilation of the ascending thoracic aorta. Electronically signed by: Sly Pereyra MD (04/09/2021 2:04 PM) [facility]
== END ==
LOC: CT 09:48
PROVIDERS: ATTEND Radiology Radiation Oncology
DX: C34.31 Malignant neoplasm of lower lobe, right bronchus or lung (principal); J43.9 Emphysema, unspecified; R91.8 Other nonspecific abnormal finding of lung field; J98.4 Other disorders of lung; I25.10 Atherosclerotic heart disease of native coronary artery without angina pectoris; I77.810 Thoracic aortic ectasia
CPT/HCPCS: 71250

== ENCOUNTER → 2021-08-13 | Outpatient (CLI) | payer MEDICARE ==
--- NOTE | 2021-08-13 15:02 | RAD ---
EXAMINATION: CT Chest Without IV contrast. INDICATION:70 years, Male, follow-up lung cancer. COMPARISON: 04/09/2021. TECHNIQUE: Spiral CT was obtained from the jugular notch through the posterior costophrenic recess. S agittal and coronal reformats were obtained. Exposure: One or more of the following individualized dose reduction techniques were utilized for thi s examination: 1. Automated exposure control 2. Adjustment of the mA and/or kV according to patient size 3. Use of iterative reconstruction technique. FINDINGS: LUNGS/PLEURA: Central airways are patent. Moderate pulmonary emphysema. Similar linear scarring with fiducial marker in the right lower lobe. No discrete soft tissue nodularity adjacent to the scar tiss ue at fiducial marker. Chronic scarring in the right middle lobe and lingula. No focal consolidation, pleural effusion or pneumothorax. No suspicious pulmonary nodule. MEDIASTINUM: No pathologic mediastinal or hilar adenopathy. Calcified right hilar lymph nodes. Unchan ged ascending thoracic aortic aneurysm measures 4.5 cm in diameter. Pulmonary arteries are normal in caliber. The heart is normal in size. No pericardial effusion. Moderate calcified coronary atheroscle rosis. The visualized thyroid and the esophagus are unremarkable. AXILLA/SOFT TISSUE: No supraclavicular or axillary adenopathy. Regional soft tissues are within blaire l limits. UPPER ABDOMEN: The visualized upper abdomen appears unremarkable, within the limitation of noncontras t exam. BONES: No evidence of acute fractures or aggressive osseous lesions. Multilevel degenerative changes in the spine. Intraosseous hemangioma at T5 vertebral body, unchanged. IMPRESSION: 1. No findings to suggest local tumor recurrence or metastatic disease. 2. Moderate pulmonary emphysema. 3. Unchanged 4.5 cm ascending thoracic aortic aneurysm. 4. Moderate calcified coronary atherosclerosis. Electronically signed by: Joan De MD (08/13/2021 2:59 PM) [facility]
== END ==
LOC: CT 10:43
PROVIDERS: ATTEND Internal Medicine Pulmonary Disease
DX: I71.2 Thoracic aortic aneurysm, without rupture (principal); J43.9 Emphysema, unspecified; I25.10 Atherosclerotic heart disease of native coronary artery without angina pectoris; I89.8 Other specified noninfective disorders of lymphatic vessels and lymph nodes; D18.09 Hemangioma of other sites; M47.819 Spondylosis without myelopathy or radiculopathy, site unspecified
CPT/HCPCS: 71250